=== PATIENT | male | born 1955 | race Caucasian/White ===

== ENCOUNTER 2016-07-11 19:19 | Inpatient (IN) | payer OTHER ==
[~2016-07-11] VITALS: Ht 177.8 cm; Wt 82.7 kg
[2016-07-11] MEDS: SOD CHLORIDE 0.9% 1,000 ML IV SCH (00:45)
--- NOTE | 2016-07-11 19:41 | RADRPT ---
PROCEDURE: CT Brain without contrast. CLINICAL INDICATION: Acute left-sided weakness. Suspected stroke. TECHNIQUE: Axial images from the skull base through the vertex without IV contrast. Multiplanar r eformatted images were made. Images were reviewed on a PACS workstation. The CTDIvol is 44.11 mGy and the DLP is 720.23 mGycm. One or more of the following dose reduction techniques were used: auto mated exposure control, adjustment of the mA and/or kV according to patient size, or use of iterativ e reconstruction technique. COMPARISON: None. FINDINGS: The ventricles and cisterns are normal for age. There is no evidence for territorial infarction or intracranial hemorrhage. No mass or midline shift is seen. No extra-axial fluid collection is seen . minimal cortical atrophy is seen. Subtle white matter low attenuation most likely due to chroni c microvascular ischemic change is seen. There is not a clearly defined territorial infarction or i ntracranial hemorrhage. No mass or midline shift is seen. No extraaxial fluid collection is seen. Partially calcified lesion of the scalp at the vertex is seen. The visualized paranasal sinuses an d mastoids are clear. IMPRESSION: Mild cortical atrophy with mild probable chronic microvascular ischemic change. Hyperacute infarcti on may not be visible by CT and MRI may be helpful if indicated. Results were called to Rnoy Jiménez at 07/11/2016 7:36:38 PM RPTAT: HLBE Physician Herve Date Time Electronically viewed and signed by Abi Sanches Physician on 07/11/2016 19:41 EH
--- NOTE | 2016-07-11 19:42 | ERA ---
ER Documentation Chief Complaint Date/Time DATE: 07/11/16 TIME: 19:36 Chief Complaint sudden onset left hand/side weakness @ 1830 per pt, on ground weak, -loc HPI This is a 60-year-old male who had an onset of left-sided numbness and weakness at 6:30 PM tonight. Current time is 1943. Patient states [place] and was trying to open his gait to his house and noticed that his left arm felt numb. He was able to open the gate and went inside into the garage and his symptoms got worse. He is complaining of left face left arm left leg numbness and weakness. No slurred speech no headache. The patient was found by laying in the garage she called EMS. Patient has no known medical history. He states he has not been to the doctor his entire life. Patient is quite jovial and constantly making jokes. ROS All systems reviewed and are negative except as per history of present illness. Medications Home Meds No Active Prescriptions or Reported Meds Allergies Allergies: Coded Allergies: No Known Drug Allergies (Verified Allergy, Unknown, 07/11/16) FmHx Family History: No coronary disease Physical Exam Vitals Vital Signs Date Time Temp Pulse Resp B/P Pulse Ox O2 Delivery O2 Flow Rate FiO2 07/11/16 21:15 78 18 188/101 100 Nasal Cannula 2.0 07/11/16 21:00 85 20 198/94 100 Nasal Cannula 2.0 07/11/16 20:45 87 20 181/102 100 Room Air 07/11/16 20:30 76 20 179/108 Room Air 07/11/16 20:20 73 18 194/102 100 07/11/16 20:15 80 20 180/116 Room Air 07/11/16 19:20 97.3 103 20 187/113 99 Physical Exam Const: Well-developed, well-nourished Head: Atraumatic, normocephalic Eyes: Normal Conjunctiva, PERRLA, EOMI, normal sclera, no nystagmus ENT: Normal External Ears, Nose and Mouth, moist mucus membranes. Neck: Full range of motion. No meningismus, no lymphadenopathy. Resp: Clear to auscultation bilaterally, no wheezing, rhonchi, rales Cardio: Regular rate and rhythm, no murmurs, S1 S2 present Abd: Soft, non tender x 4, non distended. Normal bowel sounds, no guarding or rebound, no pulsitile abdominal masses or bruits Skin: No petechiae or rashes, no ecchymosis , no maculopapular rash Back: No midline or flank tenderness Ext: No cyanosis, or edema, FROM x 4, normal inspection, neurovascularly intact x 4 Neur: Awake and alert, left facial droop, left upper extremity strength is 3 out of 5, left lower extremity strength is 3-4 out of 5, sensation is loss in the left face arm and leg, sensation intact x 4, no focal findings, cerebellum intact Psych: Normal Mood and Affect Result Diagram: 07/11/16192407/11/161924 Results 24 hrs Laboratory Tests Test 07/11/16 19:25 07/11/16 19:29 07/11/16 21:50 White Blood Count 10.910^3/ul Red Blood Count 5.1710^6/ul Hemoglobin 15.9g/dl Hematocrit 46.3% Mean Corpuscular Volume 89.6fl Mean Corpuscular Hemoglobin 30.8pg Mean Corpuscular Hemoglobin Concent 34.3g/dl Red Cell Distribution Width 12.5% Platelet Count 75544^3/UL Mean Platelet Volume 8.3fl Neutrophils % 79.5% Lymphocytes % 13.0% Monocytes % 6.4% Eosinophils % 0.2% Basophils % 0.5% Nucleated Red Blood Cells % 0.0/100WBC Neutrophils # 8.610^3/ul Lymphocytes # 1.410^3/ul Monocytes # 0.710^3/ul Eosinophils # 0.010^3/ul Basophils # 0.110^3/ul Nucleated Red Blood Cells # 0.010^3/ul Prothrombin Time 12.6Sec Prothrombin Time Ratio 1.0 INR International Normalized Ratio 0.94 Activated Partial Thromboplast Time 30.4Sec Sodium Level 143mmol/L Potassium Level 4.0mmol/L Chloride Level 109mmol/L Carbon Dioxide Level 28mmol/L Anion Gap 10 Blood Urea Nitrogen 8mg/dl Creatinine 0.74mg/dl Glucose Level 111mg/dl Hemoglobin A1c 6.0% Calcium Level 9.6mg/dl Troponin I < 0.012ng/ml Bedside Glucose 103mg/dL Urine Color LT. YELLOW Urine Clarity HAZY Urine pH 8.0 Urine Specific Dennison 1.020 Urine Ketones TRACE Urine Nitrite NEGATIVE Urine Bilirubin NEGATIVE Urine Urobilinogen 0.2 E.U./dL Urine Leukocyte Esterase NEGATIVE Urine Microscopic RBC Pending Urine Microscopic WBC Pending Urine Hemoglobin 1+ Urine Glucose NEGATIVE% Urine Total Protein 1+ Current Medications Medications (Trade) Dose Ordered Sig/Martha Route PRN Reason Start Time Stop Time Status Last Admin Dose Admin Labetalol HCl 10 mg 10 mg ONCE ONCE IV 07/11/16 20:00 07/11/16 20:01 DC 07/11/16 20:00 Sodium Chloride (NS) 1,000 ml @ 1,000 mls/hr Q1H STAT IV 07/11/16 19:49 07/11/16 20:48 DC Alteplase, Recombinant (Activase) 7.6 mg BOLUS OVER 1 MIN ONCE IV* 07/11/16 20:00 07/11/16 20:01 DC 07/11/16 20:15 Alteplase, Recombinant 68 mg 68 mg ISCHEMIC STROKE ONCE IV* 07/11/16 20:00 07/11/16 20:01 DC 07/11/16 20:15 Sodium Chloride (NS) 50 ml @ 0 mls/hr FLUSH AFTER TPA ONCE IV 07/11/16 20:00 07/11/16 20:01 DC IV Flush 10 ml 10 ml STK-MED ONCE .ROUTE 07/11/16 20:19 07/11/16 20:20 DC 07/11/16 20:48 Sodium Chloride (NS) 100 ml @ ud STK-MED ONCE .ROUTE 07/11/16 20:19 07/11/16 20:20 DC 07/11/16 20:48 Iohexol 150 ml 150 ml STK-MED ONCE .ROUTE 07/11/16 20:19 07/11/16 20:20 DC Iohexol (Omnipaque) 100 ml @ ud STK-MED ONCE .ROUTE 07/11/16 20:20 07/11/16 20:21 DC 07/11/16 20:49 Iohexol (Omnipaque 350mg/ ml) 50 ml STK-MED ONCE .ROUTE 07/11/16 20:20 07/11/16 20:21 DC 07/11/16 20:49 Lorazepam (Ativan) 0.5 mg ONCE ONCE IV 07/11/16 21:30 07/11/16 21:31 DC 07/11/16 21:20 Labetalol HCl (Labetalol) 10 mg ONCE ONCE IV 07/11/16 21:30 07/11/16 21:31 DC 07/11/16 21:26 Lorazepam (Ativan) 1 mg ONCE ONCE IV 07/11/16 22:00 07/11/16 22:01 DC Procedures/MDM PROCEDURE: CT Brain without contrast. CLINICAL INDICATION: Acute left-sided weakness. Suspected stroke. TECHNIQUE: Axial images from the skull base through the vertex without IV contrast. Multiplanar reformatted images were made. Images were reviewed on a PACS workstation. The CTDIvol is 44.11 mGy and the DLP is 720.23 mGycm. One or more of the following dose reduction techniques were used: automated exposure control, adjustment of the mA and/or kV according to patient size, or use of iterative reconstruction technique. COMPARISON: None. FINDINGS: The ventricles and cisterns are normal for age. There is no evidence for territorial infarction or intracranial hemorrhage. No mass or midline shift is seen. No extra-axial fluid collection is seen. minimal cortical atrophy is seen. Subtle white matter low attenuation most likely due to chronic microvascular ischemic change is seen. There is not a clearly defined territorial infarction or intracranial hemorrhage. No mass or midline shift is seen. No extraaxial fluid collection is seen. Partially calcified lesion of the scalp at the vertex is seen. The visualized paranasal sinuses and mastoids are clear. IMPRESSION: Mild cortical atrophy with mild probable chronic microvascular ischemic change. Hyperacute infarction may not be visible by CT and MRI may be helpful if indicated. Results were called to Rony Jiménez at 07/11/2016 7:36:38 PM RPTAT: HLBE Physician Herve Date Time Electronically viewed and signed by Abi Sanches Physician on 07/11/2016 19 :41 LE/ CC: RONY SORENSEN DO EKG: Rate/Rhythm: Normal Sinus Rhythm,NL intervals QRS, ST, QT: NORMAL OH, QRS, QT] Impression: NORMAL EKG Spoke with the tele-radiologist at 1951 she is in examining him now in 1954 After her evaluation she advised TPA. PROCEDURE: CT Angiogram Head and Neck with IV Contrast CLINICAL INDICATION: Left-sided weakness. Visual neglect.. TECHNIQUE: Serial axial computed tomographic images of the head and neck were obtained at the administration of 115 cc Omnipaque 350 IV contrast material. 3D , sagittal and coronal reconstruction images were created. 3D/MIP post- processing angiographic reconstruction images were also produced. Exam CTDlvol = 57 mGy and DLP = 736 mGy-cm. One of the following 3 dose reduction techniques were used: Automated exposure control; adjustment of the mA and/or kV according to patient size; or use of iterative reconstruction technique. COMPARISON: CT brain 07/11/2016. FINDINGS: CT Angio Neck: The aortic arch is unremarkable. The common carotid arteries are normal in appearance. There is focal irregular noncalcified filling defect compatible with plaque at the right carotid bulb with a hemodynamically significant approximately 75% diameter stenosis. There is no intimal flap identified. The remainder of the cervical right internal carotid artery is normal in appearance. There is minimal plaque at the left carotid bulb without hemodynamically significant stenosis. The cervical left internal carotid artery is normal in appearance. The vertebral arteries are unremarkable. There are degenerative changes of the cervical spine. CT Angio Head: All major intracranial arteries are identified. There is no significant plaque formation of the cavernous and supraclinoid internal carotid arteries bilaterally. The M1 segment and proximal trifurcation branches of the right middle cerebral artery are slightly irregular and narrowed without a distinct intraluminal filling defect, a intimal flap or occlusion. There is distal runoff with visualization of the right sylvian branches. The remainder of the anterior circulation including the intracranial internal carotid arteries , middle and anterior cerebral arteries are normal in appearance. There is a patent anterior communicating artery. The bilateral distal vertebral arteries, basilar artery and posterior cerebral arteries are normal in appearance. No filling defect is identified. No aneurysm or vascular malformation is identified. No abnormal brain parenchymal enhancement is identified. IMPRESSION: 1. Hemodynamically significant 75% diameter stenosis at the right carotid bulb with irregular noncalcified plaque. No intimal flap to suggest a dissection is identified. 2. Mild diffuse narrowing of the right middle cerebral greatest in the distal M1 segment and proximal trifurcation vessels. Appearance is suggestive of a vasculitis although an eccentric non-occluding thrombus cannot be excluded. 3. Mild noncalcified plaque left carotid bulb without hemodynamically significant stenosis. Findings reported to Dr. Mata on 07/11/2016 9:09 PM. NASCET CAROTID STENOSIS CRITERIA (distal normal appearing ICA as denominator for measurement): 0%-none, 1-49%-mild, 50-70%-moderate, 70-89%-severe, 90-99%- critical. RPTAT: HMVK .Salas Leos MD, MD Date Time Electronically viewed and signed by .Salas Leos MD, on 07/11/2016 21:22 .K/ CC: RONY SORENSEN DO Patient started having some bleeding from his gums and becoming agitated and tossing and turning in the bed. Therefore a stat head CT was ordered with the following results: PROCEDURE: CT Brain without contrast. CLINICAL INDICATION: Code stroke status post t-PA TECHNIQUE: A CT of the brain was performed on a [employer] 64-slice CT scanner utilizing axial imaging from the skull base through the vertex without IV contrast. Multiplanar reformatted images were made. Images were reviewed on a PACS workstation. The CTDIvol is 44.19 mGy and the DLP is 720.23 mGycm. One of the following 3 dose reduction techniques were used: Automated exposure control; adjustment of the mA and/or kV according to patient size; or use of iterative reconstruction technique. COMPARISON: CT brain 07/11/2016 FINDINGS: There is no intracranial hemorrhage, mass effect, or midline shift is present following t-PA administration. No extra-axial fluid collection is seen. The ventricles and sulci are normal in size and configuration. Decreased attenuation is present in the right greater than left insula compatible with evolving acute subsegmental right middle cerebral artery infarct. Subtle decreased attenuation is present in the bilateral centrum semiovale and periventricular white matter compatible with mild chronic microvascular ischemic disease. minimal vascular calcifications are present of the bilateral intracranial internal carotid arteries para The visualized scalp and calvarium are again remarkable for an approximately 1 cm partially calcified left frontal scalp lesion. The bilateral orbits are normal. The bilateral paranasal sinuses, mastoid air cells and middle ear cavities are clear. IMPRESSION: 1. No evidence of acute intracranial hemorrhage status post t-PA. 2. Evolution of right sub segmental non hemorrhagic middle cerebral artery infarct in the right insula. 3. Mild chronic microvascular ischemic disease. 4. Mild atherosclerotic vascular disease A call report was made to Charge Nurse, Teresa Hernandez, as Dr Sorensen was in a procedure at 07/11/2016 10:07:02 PM following the completion of the examination by the undersigned. RPTAT: HDC .Gifty Abarca MD, MD Date Time Electronically viewed and signed by .Gifty Abarca MD, MD on 07/11/2016 22: 08 .C/ CC: RONY SORENSEN DO Patient is unstable for transfer to [facility] whom I did speak with. I did speak with the neurologist on-call about the patient's bleeding from gums and change in mental status and informed her of the new CT head findings. I would will admit to panel. Will not sedate too much so we can assess the patient's neurological status. Patient's neurologic symptoms are concerning for acute TIA/stroke, infectious, or metabolic cause and will require inpatient workup and continuous monitoring. Further w/u for will be deferred to the inpatient team. The patient has been carefully monitored in the ICU for any resultant intracranial hemorrhage from TPA. Departure Diagnosis: Primary Impression: CVA (cerebral vascular accident) Qualified Code: I63.9 - Cerebrovascular accident (CVA), unspecified mechanism Condition: Serious RONY SORENSEN DO Jul 11, 2016 19:42
[2016-07-11 19:43] LABS: ADD SCAN DIFF NO
[2016-07-11 19:45] LABS: BASOPHIL # 0.1 10^3/ul (0.0-0.1); BASOPHILS % 0.5 % (0.0-2.0); EOSINOPHILS % 0.2 % (0.0-7.0); HEMATOCRIT 46.3 % (42.0-52.0); HEMOGLOBIN 15.9 g/dl (14.0-18.0); LYMPHOCYTES # 1.4 10^3/ul (0.8-2.9); MEAN CORPUSCULAR HEMOGLOBIN 30.8 pg (29.0-33.0); MEAN CORPUSCULAR HGB CONC 34.3 g/dl (32.0-37.0); MEAN CORPUSCULAR VOLUME 89.6 fl (82.0-101.0); MEAN PLATELET VOLUME 8.3 fl (7.4-10.4); MONOCYTE # 0.7 10^3/ul (0.3-0.9); MONOCYTES % 6.4 % (0.0-11.0); NEUTROPHIL # 8.6 10^3/ul (1.6-7.5); NEUTROPHILS % 79.5 % (39.0-77.0); PLATELET COUNT 415 10^3/UL (140-415); RED BLOOD COUNT 5.17 10^6/ul (4.70-6.10); RED CELL DISTRIBUTION WIDTH 12.5 % (11.5-14.5); WHITE BLOOD COUNT 10.9 10^3/ul (4.8-10.8)
[2016-07-11] MEDS ORDERED: SOD CHLORIDE 0.9% 1,000 ML IV STA (19:49)
--- NOTE | 2016-07-11 19:56 | RADRPT ---
PROCEDURE: Chest x-ray CLINICAL INDICATION: Stroke TECHNIQUE: Chest single view COMPARISON: None FINDINGS: The heart is normal in size. The pulmonary vessels are normal in caliber. The lungs are clear. Th e costophrenic angles are sharp. The visualized bony thorax is unremarkable. IMPRESSION: No acute cardiopulmonary disease. Low lung volumes RPTAT: HH .Ghassan Weber MD, Date Time Electronically viewed and signed by .Ghassan Weber MD, on 07/11/2016 19:55 .W/
[2016-07-11] MEDS ORDERED: LABETALOL HCL 20MG INJ IV ONE ×2 (20:00→21:30)
[2016-07-11] MEDS ORDERED: ALTEPLASE (tPA) 1 MG/ML BOLUS SYG IV* ONE (20:00)
[2016-07-11] MEDS ORDERED: ALTEPLASE 100 MG INJ IV* ONE (20:00)
[2016-07-11] MEDS ORDERED: SOD CHLORIDE 0.9% 50 ML IV ONE (20:00)
[2016-07-11 20:02] LABS: ANION GAP 10 (8-16); BLOOD UREA NITROGEN 8 mg/dl (7-20); CALCIUM 9.6 mg/dl (8.4-10.2); CARBON DIOXIDE 28 mmol/L (21-31); CHLORIDE 109 mmol/L (97-110); CREATININE 0.74 mg/dl (0.61-1.24); GLUCOSE 111 mg/dl (70-220); SODIUM 143 mmol/L (135-144)
[2016-07-11 20:04] LABS: INR 0.94; PROTIME 12.6 Sec (12.2-14.2)
[2016-07-11 20:05] LABS: PARTIAL THROMBOPLASTIN TIME 30.4 Sec (25.0-35.0)
[2016-07-11 20:16] LABS: TROPONIN-I < 0.012 ng/ml (0.00-0.12)
[2016-07-11] MEDS ORDERED: SOD CHLORIDE 0.9% 100 ML ONE (20:19)
[2016-07-11] MEDS ORDERED: IOHEXOL 300MG/ML 150 ML BTL ONE (20:19)
[2016-07-11] MEDS ORDERED: IOHEXOL 100 ML ONE (20:20)
[2016-07-11] MEDS ORDERED: IOHEXOL 350MG/ML 50 ML BTL ONE (20:20)
--- NOTE | 2016-07-11 20:51 | STROKE ---
Date/Time of Note Date/Time of Note DATE: 07/11/16 TIME: 19:58 Patient Information General Patient location: emergency Arrival Date Age 60 Gender male Weight 84 kg POC Glucose Glucose Result Bedside Glucose - 72 Hours Test 07/11/16 19:29 Bedside Glucose 103mg/dL (70-220) Vital Signs Vital Signs Vital Signs Date Time Temp Pulse Resp B/P Pulse Ox O2 Delivery O2 Flow Rate FiO2 07/11/16 19:20 97.3 103 20 187/113 99 Patient History Current Medications Allergies: Coded Allergies: No Known Drug Allergies (Verified Allergy, Unknown, 07/11/16) Labs Hematology Labs Hematology Test 07/11/16 19:25 White Blood Count 10.910^3/ul (4.8-10.8) Red Blood Count 5.1710^6/ul (4.70-6.10) Hemoglobin 15.9g/dl (14.0-18.0) Hematocrit 46.3% (42.0-52.0) Mean Corpuscular Volume 89.6fl (82.0-101.0) Mean Corpuscular Hemoglobin 30.8pg (29.0-33.0) Mean Corpuscular Hemoglobin Concent 34.3g/dl (32.0-37.0) Red Cell Distribution Width 12.5% (11.5-14.5) Platelet Count 62532^3/UL (140-415) Mean Platelet Volume 8.3fl (7.4-10.4) Neutrophils % 79.5% (39.0-77.0) Lymphocytes % 13.0% (15.0-51.0) Monocytes % 6.4% (0.0-11.0) Eosinophils % 0.2% (0.0-7.0) Basophils % 0.5% (0.0-2.0) Nucleated Red Blood Cells % 0.0/100WBC (0.0-0.0) Neutrophils # 8.610^3/ul (1.6-7.5) Lymphocytes # 1.410^3/ul (0.8-2.9) Monocytes # 0.710^3/ul (0.3-0.9) Eosinophils # 0.010^3/ul (0.0-0.5) Basophils # 0.110^3/ul (0.0-0.1) Nucleated Red Blood Cells # 0.010^3/ul (0.0-0.0) Chemistry Labs Chemistry Test 07/11/16 19:29 Bedside Glucose 103mg/dL (70-220) History & Physical Patient History Notes Pt Hx Reviewed History of Present Illness 60yo M presents with acute onset left sided numbness and weakness. Patient was opening his garage door when he noticed numbness in his left arm, which progressed to left face, arm and leg weakness. Patient's found patient on the floor of the garage. Symptoms began at 6:30pm. Review of Systems Constitutional: no symptoms reported EENTM: no symptoms reported Respiratory: no symptoms reported Cardiovascular: no symptoms reported Gastrointestinal: no symptoms reported Genitourinary: no symptoms reported Musculoskeletal: no symptoms reported Skin: no symptoms reported Psychiatric/Neurological: no symptoms reported All Other Systems: Reviewed and Negative NIH Stroke Scale NIH Stroke Scale 1A - Level of Conciousness: 0 - Alert keenly [id number] LOC Questions: 0 - Answers both [id number] - LOC Commands: 0 - Performs both tasks2 - Best Gaze: 0 - Normal3 - Visual: 0 - No visual loss4 - Facial Palsy: 1 - Partial [id number] - Motor Arm - Left: 2 - Some effort to [id number] - Motor Arm - Right: 0 - No [id number] - Motor Leg - Left: 0 - No [id number] - Motor Leg - Right: 0 - No drift7 - Limb Ataxia: 0 - Absent8 - Sensory: 2 - Severe to total loss 9 - Best Language: 0 - No aphasia or normalDysarthria: 0 - [id number] - Extinction and inattentio: 1 - Sensory stimulationTotal Score: 6 Date/Time Recorded DATE: 07/11/16 TIME: 19:58 Submitted By Yazmin Trejo t-PA Imaging Review Imaging Reviewed: Yes Date/Time Imaging Reviewed DATE: 07/11/16 TIME: 19:58 Imaging Findings No acute changes t-PA Administration Recommendation: Yes Weight 84 kg t-PA Recommendation Date/Time 07/11/16 20:00 Recommedation submitted by Yazmin Trejo Recommendations Impression Diagnosis acute ischemic stroke of the right middle cerebral artery Recommendation I reviewed the risks and benefits of IV TPA in detail with the patient and his and they are agreeable to my recommendation for IV TPA. I recommend stat CTA of the head and neck to determine if the patient is a neurointerventional candidate. I recommend further workup to include MRI Brain without gadolinium and transthoracic echocardiogram. I recommend post-TPA orders be followed. Post t-PA Order recommendation: Document q15 min vitals Document q15 min neuro checks Document q15 min bleeding checks Refer to t-PA Order Sets Diagnostic Labs: Lipid Proile Hgb A1C CMP CBC w/Diff Coags Therapy: Physical Therapy Speech Therapy Occupational Therapy Misc. Recommendations: Bedside Swallow Evaluation Pnumatic Compression Devices Avoid Madrigal Catheter Stroke Education Smoking Education YAZMIN TREJO Jul 11, 2016 20:51
--- NOTE | 2016-07-11 21:22 | RADRPT ---
PROCEDURE: CT Angiogram Head and Neck with IV Contrast CLINICAL INDICATION: Left-sided weakness. Visual neglect.. TECHNIQUE: Serial axial computed tomographic images of the head [facility] Omnipaque 350 IV contrast material. 3D, sagittal and coronal reconstruction im ages were created. 3D/MIP post-processing angiographic reconstruction images were also produced. Ex am CTDlvol = 57 mGy and DLP = 736 mGy-cm. One of the following 3 dose reduction techniques were use d: Automated exposure control; adjustment of the mA and/or kV according to patient size; or use of i terative reconstruction technique. COMPARISON: CT brain 07/11/2016. FINDINGS: CT Angio Neck: The aortic arch is unremarkable. The common carotid arteries are normal in appear ance. There is focal irregular noncalcified filling defect compatible with plaque at the right carot id bulb with a hemodynamically significant approximately 75% diameter stenosis. There is no intimal flap identified. The remainder of the cervical right internal carotid artery is normal in appearanc e. There is minimal plaque at the left carotid bulb without hemodynamically significant stenosis. The cervical left internal carotid artery is normal in appearance. The vertebral arteries are unre markable. There are degenerative changes of the cervical spine. CT Angio Head: All major intracranial arteries are identified. There is no significant plaque forma tion of the cavernous and supraclinoid internal carotid arteries bilaterally. The M1 segment and pr oximal trifurcation branches of the right middle cerebral artery are slightly irregular and narrowed without a distinct intraluminal filling defect, a intimal flap or occlusion. There is distal runof f with visualization of the right sylvian branches. The remainder of the anterior circulation includ ing the intracranial internal carotid arteries, middle and anterior cerebral arteries are normal in appearance. There is a patent anterior communicating artery. The bilateral distal vertebral arteri es, basilar artery and posterior cerebral arteries are normal in appearance. No filling defect is identified. No aneurysm or vascular malformation is identified. No abnormal brain parenchymal e nhancement is identified. IMPRESSION: 1. Hemodynamically significant 75% diameter stenosis at the right carotid bulb with irregular nonca lcified plaque. No intimal flap to suggest a dissection is identified. 2. Mild diffuse narrowing of the right middle cerebral greatest in the distal M1 segment and proxim al trifurcation vessels. Appearance is suggestive of a vasculitis although an eccentric non-occludi ng thrombus cannot be excluded. 3. Mild noncalcified plaque left carotid bulb without hemodynamically significant stenosis. Findings reported to Dr. Mata on 07/11/2016 9:09 PM. NASCET CAROTID STENOSIS CRITERIA (distal normal appearing ICA as denominator for measurement): 0%-no ne, 1-49%-mild, 50-70%-moderate, 70-89%-severe, 90-99%-critical. RPTAT: HMVK .Salas Leos MD, MD Date Time Electronically viewed and signed by .Salas Leos MD, on 07/11/2016 21:22 .K/
--- NOTE | 2016-07-11 21:24 | RADRPT ---
PROCEDURE: CT Angiogram Head and Neck with IV Contrast CLINICAL INDICATION: Left-sided weakness. Visual neglect. TECHNIQUE: Serial axial computed tomographic images of the head and [facility] 115 cc Omnipaque 350 IV contrast material. 3D, sagittal and coronal reconstruction im ages were created. 3D/MIP post-processing angiographic reconstruction images were also produced. Ex am CTDlvol = 57 mGy and DLP = 736 mGy-cm. One of the following 3 dose reduction techniques were use d: Automated exposure control; adjustment of the mA and/or kV according to patient size; or use of i terative reconstruction technique. COMPARISON: CT brain 07/11/2016. FINDINGS: CT Angio Neck: The aortic arch is unremarkable. The common carotid arteries are normal in appear ance. There is focal irregular noncalcified filling defect compatible with plaque at the right carot id bulb with a hemodynamically significant approximately 75% diameter stenosis. There is no intimal flap identified. The remainder of the cervical right internal carotid artery is normal in appearanc e. There is minimal plaque at the left carotid bulb without hemodynamically significant stenosis. The cervical left internal carotid artery is normal in appearance. The vertebral arteries are unre markable. There are degenerative changes of the cervical spine. CT Angio Head: All major intracranial arteries are identified. There is no significant plaque forma tion of the cavernous and supraclinoid internal carotid arteries bilaterally. The M1 segment and pr oximal trifurcation branches of the right middle cerebral artery are slightly irregular and narrowed without a distinct intraluminal filling defect, a intimal flap or occlusion. There is distal runof f with visualization of the right sylvian branches. The remainder of the anterior circulation includ ing the intracranial internal carotid arteries, middle and anterior cerebral arteries are normal in appearance. There is a patent anterior communicating artery. The bilateral distal vertebral arteri es, basilar artery and posterior cerebral arteries are normal in appearance. No filling defect is identified. No aneurysm or vascular malformation is identified. No abnormal brain parenchymal e nhancement is identified. IMPRESSION: 1. Hemodynamically significant 75% diameter stenosis at the right carotid bulb with irregular nonca lcified plaque. No intimal flap to suggest a dissection is identified. 2. Mild diffuse narrowing of the right middle cerebral greatest in the distal M1 segment and proxim al trifurcation vessels. Appearance is suggestive of a vasculitis although an eccentric non-occludi ng thrombus cannot be excluded. 3. Mild noncalcified plaque left carotid bulb without hemodynamically significant stenosis. Findings reported to Dr. Mata and Kira on 07/11/2016 9:09 PM. NASCET CAROTID STENOSIS CRITERIA (distal normal appearing ICA as denominator for measurement): 0%-no ne, 1-49%-mild, 50-70%-moderate, 70-89%-severe, 90-99%-critical. RPTAT: HMVK .Salas Leos MD, MD Date Time Electronically viewed and signed by .Salas Leos MD, on 07/11/2016 21:23 .K/
[2016-07-11] MEDS ORDERED: LORAZEPAM 2 MG INJ IV ONE ×2 (21:30→22:00)
--- NOTE | 2016-07-11 22:09 | RADRPT ---
PROCEDURE: CT Brain without contrast. CLINICAL INDICATION: Code stroke status post t-PA TECHNIQUE: A CT of the brain was performed on a GE [employer] 64-slice CT scanner utilizing axial imaging from the skull base through the vertex without IV contrast. Multiplanar reformatted images were made. Images were reviewed on a PACS workstation. The CTDIvol is 44.19 mGy and the DLP is 720 .23 mGycm. One of the following 3 dose reduction techniques were used: Automated exposure control; adjustment of the mA and/or kV according to patient size; or use of iterative reconstruction technique. COMPARISON: CT brain 07/11/2016 FINDINGS: There is no intracranial hemorrhage, mass effect, or midline shift is present following t-PA adminis tration. No extra-axial fluid collection is seen. The ventricles and sulci are normal in size and c onfiguration. Decreased attenuation is present in the right greater than left insula compatible with evolving acute subsegmental right middle cerebral artery infarct. Subtle decreased attenuation is p resent in the bilateral centrum semiovale and periventricular white matter compatible with mild [place] microvascular ischemic disease. minimal vascular calcifications are present of the bilateral int racranial internal carotid arteries para The visualized scalp and calvarium are again remarkable for an approximately 1 cm partially calcifie d left frontal scalp lesion. The bilateral orbits are normal. The bilateral paranasal sinuses, mast oid air cells and middle ear cavities are clear. IMPRESSION: 1. No evidence of acute intracranial hemorrhage status post t-PA. 2. Evolution of right sub segmental non hemorrhagic middle cerebral artery infarct in the right ins geovanna. 3. Mild chronic microvascular ischemic disease. 4. Mild atherosclerotic vascular disease A call report was made to Charge Nurse, Teresa Hernandez, as Dr Malone was in a procedure at 07/11/2016 10:0 7:02 PM following the completion of the examination by the undersigned. RPTAT: HDC .Gifty Abarca MD, MD Date Time Electronically viewed and signed by .Gifty Abarca MD, on 07/11/2016 22:08 .C/
[2016-07-11 22:17] LABS: ADD UMIC YES; URINE BILIRUBIN (Dip) NEGATIVE (NEGATIVE); URINE BLOOD (Dip) 1+ (NEGATIVE); URINE COLOR LT. YELLOW (YELLOW); URINE GLUCOSE (Dip) NEGATIVE (NEGATIVE); URINE KETONES (Dip) TRACE (NEGATIVE); URINE LEUKOCYTE ESTERASE (Dip) NEGATIVE (NEGATIVE); URINE NITRITE (Dip) NEGATIVE (NEGATIVE); URINE TOTAL PROTEIN (Dip) 1+ (NEGATIVE); URINE UROBILINOGEN (Dip) 0.2 E.U./dL (0.1-1.0)
[2016-07-11 22:41] LABS: BACTERIA,URINE MODERATE
[2016-07-11 22:43] LABS: BARBITURATES Negative (NEGATIVE); BENZODIAZEPINES Negative (NEGATIVE); CANNABINOIDS Negative (NEGATIVE); COCAINE Negative (NEGATIVE); OPIATES Negative (NEGATIVE)
[2016-07-12] VITALS (31 sets, daily range): BP systolic 148–192; BP diastolic 64–106; PULSE 69–105; RESP 13–29; TEMP 98.2; Ht 177.8 cm; Wt 82.7 kg
[2016-07-12] MEDS: LABETALOL HCL 20MG INJ IV PRN ×2 (01:33→02:42)
[2016-07-12 01:35] LABS: ADD SCAN DIFF NO
[2016-07-12 01:42] LABS: BASOPHILS % 0.4 % (0.0-2.0); HEMATOCRIT 47.7 % (42.0-52.0); HEMOGLOBIN 16.1 g/dl (14.0-18.0); LYMPHOCYTES % 9.5 % (15.0-51.0); MEAN CORPUSCULAR HEMOGLOBIN 30.1 pg (29.0-33.0); MEAN CORPUSCULAR HGB CONC 33.8 g/dl (32.0-37.0); MEAN CORPUSCULAR VOLUME 89.3 fl (82.0-101.0); MEAN PLATELET VOLUME 8.4 fl (7.4-10.4); MONOCYTE # 0.6 10^3/ul (0.3-0.9); MONOCYTES % 5.2 % (0.0-11.0); NEUTROPHIL # 9.3 10^3/ul (1.6-7.5); NEUTROPHILS % 84.4 % (39.0-77.0); PLATELET COUNT 445 10^3/UL (140-415); RED BLOOD COUNT 5.34 10^6/ul (4.70-6.10); RED CELL DISTRIBUTION WIDTH 12.3 % (11.5-14.5)
[2016-07-12 01:59] LABS: CALCIUM 9.7 mg/dl (8.4-10.2); CHOL/HDL RATIO 3.9 RATIO; CREATININE 0.68 mg/dl (0.61-1.24); POTASSIUM 4.1 mmol/L (3.5-5.1)
--- NOTE | 2016-07-12 05:19 | HP ---
Date/Time of Note Date/Time of Note DATE: 07/12/16 TIME: 05:01 Assessment/Plan VTE Prophylaxis VTE Prophylaxis Intervention: SCD's Lines/Catheters [facility]from [facility] Peripheral IV Urinary Cath still in place: Yes Reason Cath still needed: other (indicate) Assessment/Plan Chief Complaint/Hosp Course This is a 60-year-old male being admitted to the ICU floor for: #1 acute CVA: Patient presented within a timeframe of the TPA window. He was given TPA. He did experience some gingival bleeding which upon my examination had stopped. Will transfer the patient to the ICU and initiate post stroke TPA protocol. Will avoid using any further sedating medications at this time as they could affect his neurochecks. If there are any signs of deterioration or changing will order a stat CT of the head. Will order CT of the head within 24 hours a TPA. Will also order an MRI as recommended by telemetry neuro. Will also order additional labs ESR JOSHUA and Anca labs as recommended by telemetry neuro for possible vasculitis. Patient also was positive for amphetamines in his urine drug screen will repeat a urine drug screen in the a.m. it is possible that the phentermine could have contributed to this episode. Bilateral Doppler ultrasound of the carotids. Will check lipid panel and A1c. Consult neurology. CT a did show narrowing of the middle cerebral artery will evaluate this further on MRI. Next CTA showed: Hemodynamically significant 75% diameter stenosis at the right carotid bulb with irregular noncalcified plaque, will consult vascular surgery. Will also order an echocardiogram. #2 leukocytosis: Slightly elevated at 11. This likely could be reactive in nature. No current fevers. We will continue to follow this. #3 DVT and GI prophylaxis: Patient received TPA at the current time chemical prophylaxis would be further contraindicated. Will provide SCDs, Protonix Further treatment strategy will be implemented as per the clinical course. Problems: HPI/ROS Admit Date/Time Admit Date/Time Jul 12, 2016 at 00:03 Hx of Present Illness Chief complaint: Left-sided numbness and weakness This is a 60-year-old male who had an onset of left-sided numbness and weakness at 6:30 PM tonight. The following was obtained from the ED physician documentation. This patient presented at 1944 p.m. Patient [place] open his gait to his house and noticed that his left arm felt numb. He was able to open the gate and went inside into the garage and his symptoms got worse. He is complaining of left face left arm left leg numbness and weakness. No slurred speech no headache. The patient was found by laying in the garage she called EMS. Patient has no known medical history. He states he has not been to the doctor his entire life. Patient is quite jovial and constantly making jokes. Total neurology was consulted and CT of the head was performed. Patient was deemed a candidate to receive TPA.. She has NIH score was 6 after receiving TPA patient did begin to show aggressive behavior while he was sleeping. He was given Ativan in the ED. Patient's was at the bedside and I discussed his history with her. Patient is known to be a very stubborn man who did not want to go to the doctor for any visits ever. Patient does have a history of drug use according to the however she is not sure of which kind of drugs. PMH/Family/Social Past Medical History Medical History: no pertinent history Past Surgical History Past Surgical Hx: no surgical history Family History Significant Family History: cancer (Cervical cancer in mom) Social History Alcohol Use: occasionally Smoking Status: Never smoker Drug Use: other (Possible cocaine use according to in the past) Exam/Review of Systems Vital Signs Vitals Vital Signs Date Time Temp Pulse Resp B/P Pulse Ox O2 Delivery O2 Flow Rate FiO2 07/12/16 03:00 71 22 162/99 100 Nasal Cannula 2.0 07/12/16 01:00 99.2 07/11/16 21:00 28 Intake and Output 07/11/16 07/11/16 07/12/16 15:00 23:00 07:00 Output Total 1100 ml Balance -1100 ml Exam Exam General: Patient is currently post TPA and sleeping in the bed. He did receive Ativan. HEENT: Atraumatic, normocephalic. Pupils are reactive to light bilaterally. Neck: Supple with full range of motion. No rigidity or meningismus Chest: Nontender Lungs: Clear to auscultation bilaterally no crackles rales or wheezing Heart: Normal S1-S2, Regular rhythm and rate. Abdomen: Soft , nontender, nondistended , bowel sounds are present. No guarding no rebound tenderness , No masses or organomegaly. No costovertebral temporal angle mass Extremities: Patient is able to move the right upper and lower extremity to command. He is able to move his left lower extremity with a strength of about 3 -4 out of 5. His left upper extremity has a strength of about 3-2 out of 5. Neurologic: Patient does respond to sternal rub. He does answer questions appropriately. Additional Comments PROCEDURE: CT Brain without contrast. CLINICAL INDICATION: Acute left-sided weakness. Suspected stroke. TECHNIQUE: Axial images from the skull base through the vertex without IV contrast. Multiplanar reformatted images were made. Images were reviewed on a PACS workstation. The CTDIvol is 44.11 mGy and the DLP is 720.23 mGycm. One or more of the following dose reduction techniques were used: automated exposure control, adjustment of the mA and/or kV according to patient size, or use of iterative reconstruction technique. COMPARISON: None. FINDINGS: The ventricles and cisterns are normal for age. There is no evidence for territorial infarction or intracranial hemorrhage. No mass or midline shift is seen. No extra-axial fluid collection is seen. minimal cortical atrophy is seen. Subtle white matter low attenuation most likely due to chronic microvascular ischemic change is seen. There is not a clearly defined territorial infarction or intracranial hemorrhage. No mass or midline shift is seen. No extraaxial fluid collection is seen. Partially calcified lesion of the scalp at the vertex is seen. The visualized paranasal sinuses and mastoids are clear. IMPRESSION: Mild cortical atrophy with mild probable chronic microvascular ischemic change. Hyperacute infarction may not be visible by CT and MRI may be helpful if indicated. Results were called to Rony Jiménez at 07/11/2016 7:36:38 PM RPTAT: HLBE Physician Hreve Date Time Electronically viewed and signed by Physician Herve on 07/11/2016 19 :41 LE/ CC: RONY SORENSEN DO EKG: Rate/Rhythm: Normal Sinus Rhythm,NL intervals QRS, ST, QT: NORMAL ID, QRS, QT] Impression: NORMAL EKG Spoke with the tele-radiologist at 195 she is in examining him now in 1957 After her evaluation she advised TPA. PROCEDURE: CT Angiogram Head and Neck with IV Contrast CLINICAL INDICATION: Left-sided weakness. Visual neglect.. TECHNIQUE: Serial axial computed tomographic images of the head and neck were obtained at the administration of 115 cc Omnipaque 350 IV contrast material. 3D , sagittal and coronal reconstruction images were created. 3D/MIP post- processing angiographic reconstruction images were also produced. Exam CTDlvol = 57 mGy and DLP = 736 mGy-cm. One of the following 3 dose reduction techniques were used: Automated exposure control; adjustment of the mA and/or kV according to patient size; or use of iterative reconstruction technique. COMPARISON: CT brain 07/11/2016. FINDINGS: CT Angio Neck: The aortic arch is unremarkable. The common carotid arteries are normal in appearance. There is focal irregular noncalcified filling defect compatible with plaque at the right carotid bulb with a hemodynamically significant approximately 75% diameter stenosis. There is no intimal flap identified. The remainder of the cervical right internal carotid artery is normal in appearance. There is minimal plaque at the left carotid bulb without hemodynamically significant stenosis. The cervical left internal carotid artery is normal in appearance. The vertebral arteries are unremarkable. There are degenerative changes of the cervical spine. CT Angio Head: All major intracranial arteries are identified. There is no significant plaque formation of the cavernous and supraclinoid internal carotid arteries bilaterally. The M1 segment and proximal trifurcation branches of the right middle cerebral artery are slightly irregular and narrowed without a distinct intraluminal filling defect, a intimal flap or occlusion. There is distal runoff with visualization of the right sylvian branches. The remainder of the anterior circulation including the intracranial internal carotid arteries , middle and anterior cerebral arteries are normal in appearance. There is a patent anterior communicating artery. The bilateral distal vertebral arteries, basilar artery and posterior cerebral arteries are normal in appearance. No filling defect is identified. No aneurysm or vascular malformation is identified. No abnormal brain parenchymal enhancement is identified. IMPRESSION: 1. Hemodynamically significant 75% diameter stenosis at the right carotid bulb with irregular noncalcified plaque. No intimal flap to suggest a dissection is identified. 2. Mild diffuse narrowing of the right middle cerebral greatest in the distal M1 segment and proximal trifurcation vessels. Appearance is suggestive of a vasculitis although an eccentric non-occluding thrombus cannot be excluded. 3. Mild noncalcified plaque left carotid bulb without hemodynamically significant stenosis. Findings reported to Dr. Mata on 07/11/2016 9:09 PM. NASCET CAROTID STENOSIS CRITERIA (distal normal appearing ICA as denominator for measurement): 0%-none, 1-49%-mild, 50-70%-moderate, 70-89%-severe, 90-99%- critical. RPTAT: HMVK .Salas Leos MD, Date Time Electronically viewed and signed by .Salas Leos MD, on 07/11/2016 21:22 .K/ CC: RONY SORENSEN DO Patient started having some bleeding from his gums and becoming agitated and tossing and turning in the bed. Therefore a stat head CT was ordered with the following results: PROCEDURE: CT Brain without contrast. CLINICAL INDICATION: Code stroke status post t-PA TECHNIQUE: A CT of the brain was performed on a [employer] 64-slice CT scanner utilizing axial imaging from the skull base through the vertex without IV contrast. Multiplanar reformatted images were made. Images were reviewed on a PACS workstation. The CTDIvol is 44.19 mGy and the DLP is 720.23 mGycm. One of the following 3 dose reduction techniques were used: Automated exposure control; adjustment of the mA and/or kV according to patient size; or use of iterative reconstruction technique. COMPARISON: CT brain 07/11/2016 FINDINGS: There is no intracranial hemorrhage, mass effect, or midline shift is present following t-PA administration. No extra-axial fluid collection is seen. The ventricles and sulci are normal in size and configuration. Decreased attenuation is present in the right greater than left insula compatible with evolving acute subsegmental right middle cerebral artery infarct. Subtle decreased attenuation is present in the bilateral centrum semiovale and periventricular white matter compatible with mild chronic microvascular ischemic disease. minimal vascular calcifications are present of the bilateral intracranial internal carotid arteries para The visualized scalp and calvarium are again remarkable for an approximately 1 cm partially calcified left frontal scalp lesion. The bilateral orbits are normal. The bilateral paranasal sinuses, mastoid air cells and middle ear cavities are clear. IMPRESSION: 1. No evidence of acute intracranial hemorrhage status post t-PA. 2. Evolution of right sub segmental non hemorrhagic middle cerebral artery infarct in the right insula. 3. Mild chronic microvascular ischemic disease. 4. Mild atherosclerotic vascular disease A call report was made to Charge Nurse, Teresa Hernandez, as Dr Sorensen was in a procedure at 07/11/2016 10:07:02 PM following the completion of the examination by the undersigned. RPTAT: HDC .Gifty Abarca MD, MD Date Time Electronically viewed and signed by .Gifty Abarca MD, MD on 07/11/2016 22: 08 Labs Result Diagram: 07/11/16192407/11/161924 Medications Medications Current Medications Sodium Chloride (NS) 1,000 ml @ 50 mls/hr Q20H IV ; Start 07/11/16 at 23:57 Acetaminophen (Tylenol Supp) 650 mg Q4H PRN ID PAIN LEVEL 1-3 OR FEVER; Start 07/12/16 at 00:00 Pantoprazole (Protonix Iv) 40 mg DAILY@06 IV ; Start 07/12/16 at 06:00 Labetalol HCl (Labetalol) 10 mg Q10M PRN IV ELEVATED BLOOD PRESSURE Last administered on 07/12/16t 02:42; Admin Dose 10 MG; Start 07/12/16 at 00:00 BALDO PATEL Jul 12, 2016 05:13
[2016-07-12] MEDS: PANTOPRAZOLE 40 MG INJ IV SCH (06:00)
[2016-07-12 06:41] LABS: ADD SCAN DIFF NO
[2016-07-12 06:56] LABS: BASOPHILS % 0.2 % (0.0-2.0); HEMATOCRIT 47.6 % (42.0-52.0); HEMOGLOBIN 16.1 g/dl (14.0-18.0); LYMPHOCYTES # 1.1 10^3/ul (0.8-2.9); LYMPHOCYTES % 9.2 % (15.0-51.0); MEAN CORPUSCULAR HEMOGLOBIN 30.2 pg (29.0-33.0); MEAN CORPUSCULAR HGB CONC 33.8 g/dl (32.0-37.0); MEAN CORPUSCULAR VOLUME 89.3 fl (82.0-101.0); MEAN PLATELET VOLUME 8.4 fl (7.4-10.4); MONOCYTE # 0.6 10^3/ul (0.3-0.9); NEUTROPHIL # 10.3 10^3/ul (1.6-7.5); PLATELET COUNT 458 10^3/UL (140-415); RED BLOOD COUNT 5.33 10^6/ul (4.70-6.10); RED CELL DISTRIBUTION WIDTH 12.3 % (11.5-14.5); WHITE BLOOD COUNT 12.1 10^3/ul (4.8-10.8)
[2016-07-12 07:19] LABS: ALBUMIN/GLOBULIN RATIO 1.42; CALCIUM 9.7 mg/dl (8.4-10.2); CREATININE 0.68 mg/dl (0.61-1.24); MAGNESIUM 2.2 mg/dl (1.7-2.5); POTASSIUM 4.1 mmol/L (3.5-5.1); TOTAL PROTEIN 8.5 g/dl (6.1-8.1)
[2016-07-12] MEDS: SOD CHLORIDE 0.9% 1,000 ML IV SCH (08:00)
[2016-07-12] MEDS ORDERED: METOPROLOL 25 MG TAB PO SCH (09:00)
--- NOTE | 2016-07-12 10:04 | PN ---
Date/Time of Note Date/Time of Note DATE: 07/12/16 TIME: 09:56 Assessment/Plan VTE Prophylaxis VTE Prophylaxis Intervention: LMWH Lines/Catheters [facility] (from [facility] Peripheral IV Urinary Cath still in place: Yes Reason Cath still needed: other (indicate) Assessment/Plan Chief Complaint/Hosp Course Assessment and plan 1. CVA versus TIA Neurology has been consulted, patient is status post TPA. Continue post TPA protocol Continue to monitor blood pressure Start aspirin, statin and Norvasc 2. Essential hypertension Started patient on Norvasc, at this time beta-lazaro is contraindicated since patient is positive for amphetamine on UDS 3. Dyslipidemia Start statin 4. 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 Prediabetic Low-carb diet, education regarding low-carb diet should be provided We will continue monitor patient closely for recommendation management treatment as clinical course Problems: Subjective 24 Hr Interval Summary Free Text/Dictation Patient has been agitated Able to follow simple commands Denies any chest pain or shortness of breath Exam/Review of Systems Vital Signs Vitals Vital Signs Date Time Temp Pulse Resp B/P Pulse Ox O2 Delivery O2 Flow Rate FiO2 07/12/16 08:00 86 07/12/16 08:00 Nasal Cannula 2.0 07/12/16 07:00 23 158/90 100 07/12/16 04:00 97.7 07/11/16 21:00 28 Intake and Output 07/11/16 07/11/16 07/12/16 15:00 23:00 07:00 Output Total 1100 ml Balance -1100 ml Exam General: The patient is well-developed, mildly agitated HEENT: Atraumatic, normocephalic. The pupils are equal and round . Neck: Supple with full range of motion. Chest: Normal expansion of the thorax during inspiration Lungs: Clear to auscultation bilaterally Heart: Normal S1-S2, Regular rhythm and rate. Abdomen: Soft , nontender, nondistended , bowel sounds are present. Extremities: Normal to inspection, no edema no cyanosis Neurologic:,The patient is awake, alert Results Result Diagram: 07/12/16 0615 07/12/16 0615 Results 24 hrs Laboratory Tests Test 07/11/16 19:25 6/1/17 19:29 07/11/16 21:50 07/12/16 01:17 White Blood Count 10.9 H Red Blood Count 5.17 Hemoglobin 15.9 Hematocrit 46.3 Mean Corpuscular Volume 89.6 Mean Corpuscular Hemoglobin 30.8 Mean Corpuscular Hemoglobin Concent 34.3 Red Cell Distribution Width 12.5 Platelet Count 415 Mean Platelet Volume 8.3 Neutrophils % 79.5 H Lymphocytes % 13.0 L Monocytes % 6.4 Eosinophils % 0.2 Basophils % 0.5 Nucleated Red Blood Cells % 0.0 Neutrophils # 8.6 H Lymphocytes # 1.4 Monocytes # 0.7 Eosinophils # 0.0 Basophils # 0.1 Nucleated Red Blood Cells # 0.0 Prothrombin Time 12.6 Prothrombin Time Ratio 1.0 INR International Normalized Ratio 0.94 Activated Partial Thromboplast Time 30.4 Sodium Level 143 Potassium Level 4.0 Chloride Level 109 Carbon Dioxide Level 28 Anion Gap 10 # Blood Urea Nitrogen 8 Creatinine 0.74 Glucose Level 111 Hemoglobin A1c 6.0 H Calcium Level 9.6 Troponin I < 0.012 Bedside Glucose 103 Urine Color LT. YELLOW Urine Clarity HAZY Urine pH 8.0 Urine Specific [place] 1.020 Urine Ketones TRACE Urine Nitrite NEGATIVE Urine Bilirubin NEGATIVE Urine Urobilinogen 0.2 E.U./dL Urine Leukocyte Esterase NEGATIVE Urine Microscopic RBC 2-5 Urine Microscopic WBC 0-2 Urine Bacteria MODERATE Urine Hemoglobin 1+ H Urine Glucose NEGATIVE Urine Total Protein 1+ H Urine Opiates Screen Negative Urine Barbiturates Negative Urine Amphetamines Screen Positive Urine Benzodiazepines Screen Negative Urine Cocaine Screen Negative Urine Cannabinoids Negative Erythrocyte Sedimentation Rate 6 C-Reactive Protein 1.3 H Test 07/12/16 06:15 White Blood Count 12.1 H Red Blood Count 5.33 Hemoglobin 16.1 Hematocrit 47.6 Mean Corpuscular Volume 89.3 Mean Corpuscular Hemoglobin 30.2 Mean Corpuscular Hemoglobin Concent 33.8 Red Cell Distribution Width 12.3 Platelet Count 458 H Mean Platelet Volume 8.4 Neutrophils % 85.0 H Lymphocytes % 9.2 L Monocytes % 5.0 Eosinophils % 0.0 Basophils % 0.2 Nucleated Red Blood Cells % 0.0 Neutrophils # 10.3 H Lymphocytes # 1.1 Monocytes # 0.6 Eosinophils # 0.0 Basophils # 0.0 Nucleated Red Blood Cells # 0.0 Sodium Level 140 Potassium Level 4.1 Chloride Level 101 Carbon Dioxide Level 26 Anion Gap 17 #H Blood Urea Nitrogen 9 Creatinine 0.68 Glucose Level 129 Calcium Level 9.7 Magnesium Level 2.2 Total Bilirubin 1.0 Direct Bilirubin 0.00 Indirect Bilirubin 1.0 Aspartate Amino Transf (AST/SGOT) 38 Alanine Aminotransferase (ALT/SGPT) 39 Alkaline Phosphatase 131 H Total Protein 8.5 H Albumin 5.0 H Globulin 3.50 H Albumin/Globulin Ratio 1.42 Medications Medications Current Medications Sodium Chloride (NS) 1,000 ml @ 50 mls/hr Q20H IV ; Start 07/11/16 at 23:57 Acetaminophen (Tylenol Supp) 650 mg Q4H PRN [place] PAIN LEVEL 1-3 OR FEVER; Start 07/12/16 at 00:00 Pantoprazole (Protonix Iv) 40 mg DAILY@06 IV ; Start 07/12/16 at 06:00 Labetalol HCl (Labetalol) 10 mg Q10M PRN IV ELEVATED BLOOD PRESSURE Last administered on 07/12/16t 02:42; Admin Dose 10 MG; Start 07/12/16 at 00:00 Atorvastatin Calcium (Lipitor) 40 mg HS PO ; Start 07/12/16 at 21:00 Metoprolol Tartrate (Lopressor) 12.5 mg BID PO ; Start 07/12/16 at 09:00 MELVINA RICH MD Jul 12, 2016 10:04
[2016-07-12] MEDS: AMLODIPINE 5 MG TAB PO SCH ×2 (10:30→21:00)
--- NOTE | 2016-07-12 11:29 | RADRPT ---
PROCEDURE: US Carotids. CLINICAL INDICATION: bruit , CVA, TIA TECHNIQUE: Multiple sonographic of the carotid bifurcation region and vertebral arteries were obta ined utilizing trujillo scale, duplex and color-flow imaging. The images were reviewed on a PACS worksta tion. COMPARISON: 07/11/16 FINDINGS: Evaluation of the right carotid bifurcation region reveals no significant calcific atherosclerotic d isease. There is moderate intimal thickening in the right common carotid artery. There is a 57% stenosis in the right common carotid artery. Evaluation of the left carotid bifurcation region reveals no significant calcific atherosclerotic di sease. There is antegrade flow within the vertebral arteries bilaterally. RIGHT CAROTID MEASUREMENTS: Common Carotid Ciewkt96.3 (cm/sec) Internal Carotid Artery - imnctygd353.3 (cm/sec) Internal Carotid Artery - afx596.8 (cm/sec) Internal Carotid Artery - hgploi512.8 (cm/sec) Internal Carotid/Common Carotid2.12 LEFT CAROTID MEASUREMENTS: Common Carotid Laekdq60 (cm/sec) Internal Carotid Artery - nbeyvmyb21.8 (cm/sec) Internal Carotid Artery - mid53.8 (cm/sec) Internal Carotid Artery - .4 (cm/sec) Internal Carotid/Common Carotid0.97 RPTAT: AA IMPRESSION: Moderate intimal thickening in the right common carotid artery with a 57% stenosis. 50-69% stenosis in the right ICA. - validated velocity measurements with angiographic measurements, velocity criteria are extrapolated from diameter data as defined by the Society of Radiologists [facility] Consensus Conference Radiology 2003; 229;340-346. This study does indirectly reference th e measurement of the distal ICA diameter as the denominator for stenosis measurement. Normal antegrade flow in the vertebral arteries bilaterally. .Manny Diez MD, MD Date Time Electronically viewed and signed by .Manny Diez MD, MD on 07/12/2016 11:28 .S/
--- NOTE | 2016-07-12 12:14 | RADRPT ---
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 Physician: BALDO PATEL Quality: Good Procedures: Transthoracic echocardiogram with complete 2D, M-Mode, and doppler examination. Indications: Cerebrovascular Accident. 2D/M Mode Doppler Measurement Value Normal Ranges Measurement Value Normal Ranges LVIDd 2D 3.7 3.5 - 5.6 cm AV Peak Benigno 1.6 m/sec LVIDs 2D 1.9 2.1 - 4.1 cm AV Peak PG 10.0 mmHg FS 2D 49.2 % AI Peak PG 85.0 mmHg LVPWd 2D 1.0 0.6 - 1.1 cm AI Peak Benigno 4.6 m/sec IVSd 2D 1.0 0.6 - 1.1 cm AI PHT 555.0 msec IVS/LVPW 2D 1.0 LVOT Peak Benigno 1.2 m/sec AoR Diam 2D 2.9 2.0 - 3.7 cm LVOT Peak PG 6.0 mmHg LA/Ao 2D 1 0 - 1 MV E Peak Benigno 0.6 m/sec EDV 2D 50.7 cm3 MV A Peak Benigno 0.9 m/sec ESV 2D 6.6 cm3 MV E/A 0.7 LA Dimen 2D 3.4 2.3 - 4.0 cm MV Decel Time 225 msec MV E/A 0.7 Findings Left Ventricle: Normal left ventricular systolic function. Normal left ventricular cavity size. Normal left ventricular wall thickness. Ejection fraction is visually estimated at 60 %. Tissue Doppler/Mitral Doppler indices are within normal limits. Right Ventricle: Normal right ventricular size. Normal right ventricular systolic function. Left Atrium: The left atrium is normal in size. Right Atrium: The right atrium is normal in size. Mitral Valve: Normal appearance and function of the mitral valve with trace physiologic regurgitation. Aortic Valve: Normal appearance of the aortic valve. No hemodynamically significant aortic stenosis by doppler. Aortic cusps appear mildly calcified. Mild aortic valve regurgitation. Tricuspid Valve: Normal appearance of the tricuspid valve. Unable to obtain RVSP due to minimal presence of tricuspid regurgitation. Pulmonic Valve: Pulmonic valve not well visualized. Pericardium: Normal pericardium with no significant pericardial effusion. Aorta: Normal aortic root. IVC: Normal size and normal respiratory collapse consistent with normal right atrial pressure. Conclusions 1.Normal left ventricular systolic function. Normal left ventricular cavity size. Normal left ventricular wall thickness. Ejection fraction is visually estimated at 60 %. Tissue Doppler/Mitral Doppler indices are within normal limits. 2.Mild aortic valve regurgitation. 3.Unable to obtain RVSP due to minimal presence of tricuspid regurgitation. RA pressure estimated to be 3 mmHg. Electronically Signed By: Brayden Peterson 12-Jul-2016 12:13:47 -0700 Patient Name: MAURIZIO POLLARD Study Date: 12-Jul-2016 [id number]
--- NOTE | 2016-07-12 14:29 | CONS ---
Date/Time of Note Date/Time of Note DATE: 07/12/16 TIME: 14:15 Assessment/Plan Assessment/Plan Chief Complaint/Hosp Course Sudden onset of left-sided weakness and slurring of speech Problems: Additional Assessment/Plan Patient is a 60-year-old male admitted with sudden onset of of left-sided numbness and weakness. Patient was seen by telemetry neurology was consulted and CT of the head was performed. Patient was deemed a candidate to receive TPA.. He is currently in ICU. Initial CT scan of the brain did not show any acute stroke. Repeat CT scan of the brain showed evolution of right sub segmental non hemorrhagic middle cerebral artery infarct in the right insula and mild chronic microvascular ischemic disease. CT angiogram of the head and neck showed 75% narrowing of the right carotid bulb. Examination shows left hemiparesis. He apparently had right MCA ischemic stroke secondary to carotid artery stenosis. Plan: 1 no blood thinners for 24 hours after TPA [address] scan of the brain to rule out hemorrhage at 24 hours after TPA [address] scan of the brain is negative for blood, will start on aspirin 81 mg p.o. daily 4 echocardiogram 5 continue neuro check per ICU protocol 6 OT/PT/speech evaluation and treatment 7 discussed with patient and were present in the room 8 will follow Consultation Date/Type/Reason Admit Date/Time Jul 12, 2016 at 00:03 Date of Consultation: Jul 12, 2016 Type of Consultation: Neurology Referring Provider: BALDO PATEL Hx of Present Illness Patient is a 60-year-old male was brought in by paramedics for sudden onset of of left-sided numbness and weakness. Patient's found him on the floor and was noted to have left-sided weakness and slurring of speech. Patient has no known medical history and has never seen a physician. Patient was seen by telemetry neurology was consulted and CT of the head was performed. Patient was deemed a candidate to receive TPA.. He haD NIH score was 6 after receiving TPA patient did begin to show aggressive behavior while he was sleeping. He was given Ativan in the ED. Patient does have a history of drug use according to the however she is not sure of which kind of drugs. He is currently in ICU. Initial CT scan of the brain did not show any acute stroke. Repeat CT scan of the brain showed evolution of right sub segmental non hemorrhagic middle cerebral artery infarct in the right insula and mild chronic microvascular ischemic disease. CT angiogram of the head and neck showed 75% narrowing of the right carotid bulb. Eyes: no complaints ENT: no complaints Respiratory: no complaints Cardiovascular: no complaints Gastrointestinal: no complaints Genitourinary: no complaints Skin: no complaints Neurologic: focal-weakness Endocrine: no complaints Lymphatic: no complaints Immunologic: no complaints Past Medical History Medical History: no pertinent history Past Surgical History Past Surgical Hx: no surgical history Social History Alcohol Use: occasionally Smoking Status: Never smoker Drug Use: other (Possible cocaine use according to in the past) Exam/Review of Systems Vital Signs Vitals Vital Signs Date Time Temp Pulse Resp B/P Pulse Ox O2 Delivery O2 Flow Rate FiO2 07/12/16 12:00 70 07/12/16 12:00 22 167/92 100 Nasal Cannula 2.0 07/12/16 08:00 98.6 07/11/16 21:00 28 Intake and Output 07/11/16 07/11/16 07/12/16 15:00 23:00 07:00 Output Total 1100 ml Balance -1100 ml Exam Constitutional: other (He is keeping his eyes closed and follows simple commands) Head: atraumatic, normocephalic Eyes: EOMI, nl conjunctiva, nl lids, nl sclera ENMT: mucosa pink and moist, nl external ears & nose, nl lips & teeth, nl nasal mucosa & septum Neck: non-tender, supple Respiratory: clear to auscultation, normal air movement Cardiovascular: regular rate and rhythm Gastrointestinal: nl liver, spleen, non-tender, soft Extremities: normal pulses Neurological: other (Drowsy, follows simple commands, limited exam, left hemiparesis, unable to squeeze my fingers on the left and was unable to raise her arm and leg against gravity, left Babinski) Results Result Diagram: 07/12/16 0615 07/12/16 0615 Results 24 hrs Laboratory Tests Test 07/11/16 19:25 07/11/16 19:29 07/11/16 21:50 07/12/16 01:17 White Blood Count 10.9 H Red Blood Count 5.17 Hemoglobin 15.9 Hematocrit 46.3 Mean Corpuscular Volume 89.6 Mean Corpuscular Hemoglobin 30.8 Mean Corpuscular Hemoglobin Concent 34.3 Red Cell Distribution Width 12.5 Platelet Count 415 Mean Platelet Volume 8.3 Neutrophils % 79.5 H Lymphocytes % 13.0 L Monocytes % 6.4 Eosinophils % 0.2 Basophils % 0.5 Nucleated Red Blood Cells % 0.0 Neutrophils # 8.6 H Lymphocytes # 1.4 Monocytes # 0.7 Eosinophils # 0.0 Basophils # 0.1 Nucleated Red Blood Cells # 0.0 Prothrombin Time 12.6 Prothrombin Time Ratio 1.0 INR International Normalized Ratio 0.94 Activated Partial Thromboplast Time 30.4 Sodium Level 143 Potassium Level 4.0 Chloride Level 109 Carbon Dioxide Level 28 Anion Gap 10 # Blood Urea Nitrogen 8 Creatinine 0.74 Glucose Level 111 Hemoglobin A1c 6.0 H Calcium Level 9.6 Troponin I < 0.012 Bedside Glucose 103 Urine Color LT. YELLOW Urine Clarity HAZY Urine pH 8.0 Urine Specific [place] 1.020 Urine Ketones TRACE Urine Nitrite NEGATIVE Urine Bilirubin NEGATIVE Urine Urobilinogen 0.2 E.U./dL Urine Leukocyte Esterase NEGATIVE Urine Microscopic RBC 2-5 Urine Microscopic WBC 0-2 Urine Bacteria MODERATE Urine Hemoglobin 1+ H Urine Glucose NEGATIVE Urine Total Protein 1+ H Urine Opiates Screen Negative Urine Barbiturates Negative Urine Amphetamines Screen Positive Urine Benzodiazepines Screen Negative Urine Cocaine Screen Negative Urine Cannabinoids Negative Erythrocyte Sedimentation Rate 6 C-Reactive Protein 1.3 H Test 07/12/16 06:15 White Blood Count 12.1 H Red Blood Count 5.33 Hemoglobin 16.1 Hematocrit 47.6 Mean Corpuscular Volume 89.3 Mean Corpuscular Hemoglobin 30.2 Mean Corpuscular Hemoglobin Concent 33.8 Red Cell Distribution Width 12.3 Platelet Count 458 H Mean Platelet Volume 8.4 Neutrophils % 85.0 H Lymphocytes % 9.2 L Monocytes % 5.0 Eosinophils % 0.0 Basophils % 0.2 Nucleated Red Blood Cells % 0.0 Neutrophils # 10.3 H Lymphocytes # 1.1 Monocytes # 0.6 Eosinophils # 0.0 Basophils # 0.0 Nucleated Red Blood Cells # 0.0 Sodium Level 140 Potassium Level 4.1 Chloride Level 101 Carbon Dioxide Level 26 Anion Gap 17 #H Blood Urea Nitrogen 9 Creatinine 0.68 Glucose Level 129 Calcium Level 9.7 Magnesium Level 2.2 Total Bilirubin 1.0 Direct Bilirubin 0.00 Indirect Bilirubin 1.0 Aspartate Amino Transf (AST/SGOT) 38 Alanine Aminotransferase (ALT/SGPT) 39 Alkaline Phosphatase 131 H Total Protein 8.5 H Albumin 5.0 H Globulin 3.50 H Albumin/Globulin Ratio 1.42 Medications Medications Current Medications Sodium Chloride (NS) 1,000 ml @ 50 mls/hr Q20H IV Last administered on 08:00; Admin Dose 50 MLS/HR; Start 07/11/16 at 23:57 Acetaminophen (Tylenol Supp) 650 mg Q4H PRN AK PAIN LEVEL 1-3 OR FEVER; Start 07/12/16 at 00:00 Pantoprazole (Protonix Iv) 40 mg DAILY@06 IV ; Start 07/12/16 at 06:00 Labetalol HCl (Labetalol) 10 mg Q10M PRN IV ELEVATED BLOOD PRESSURE Last administered on 07/12/16 02:42; Admin Dose 10 MG; Start 07/12/16 at 00:00 Atorvastatin Calcium (Lipitor) 40 mg HS PO ; Start 07/12/16 at 21:00 Amlodipine Besylate (Norvasc) 5 mg BID PO ; Start 07/12/16 at 10:[address] brain 07/11/2016 IMPRESSION: Mild cortical atrophy with mild probable chronic microvascular ischemic change. Hyperacute infarction may not be visible by CT and MRI may be helpful if indicated. Results were called to Rony Jiménez at 07/11/2016 7:36:38 PM RPTAT: HLBE Physician Herve Date Time Electronically viewed and signed by Abi Sanches Physician on 07/11/2016 19 :[address] brain 07/11/2016 IMPRESSION: 1. No evidence of acute intracranial hemorrhage status post t-PA. 2. Evolution of right sub segmental non hemorrhagic middle cerebral artery infarct in the right insula. 3. Mild chronic microvascular ischemic disease. 4. Mild atherosclerotic vascular disease A call report was made to Charge Nurse, Teresa Hernandez, as Dr Malone was in a procedure at 07/11/2016 10:07:02 PM following the completion of the examination by the undersigned. RPTAT: HDC .Gifty Abarca MD, Date Time Electronically viewed and signed by .Gifty Abarca MD, MD on 07/11/2016 22: 08 CT angiogram of the brain 07/11/2016 IMPRESSION: 1. Hemodynamically significant 75% diameter stenosis at the right carotid bulb with irregular noncalcified plaque. No intimal flap to suggest a dissection is identified. 2. Mild diffuse narrowing of the right middle cerebral greatest in the distal M1 segment and proximal trifurcation vessels. Appearance is suggestive of a vasculitis although an eccentric non-occluding thrombus cannot be excluded. 3. Mild noncalcified plaque left carotid bulb without hemodynamically significant stenosis. Findings reported to Dr. Mata on 07/11/2016 9:09 PM. NASCET CAROTID STENOSIS CRITERIA (distal normal appearing ICA as denominator for measurement): 0%-none, 1-49%-mild, 50-70%-moderate, 70-89%-severe, 90-99%- critical. RPTAT: HMVK .Salas Leos MD, Date Time Electronically viewed and signed by .Salas Leos MD, MD on 07/11/2016 21:22 CT angiogram of the neck 07/11/2016 IMPRESSION: 1. Hemodynamically significant 75% diameter stenosis at the right carotid bulb with irregular noncalcified plaque. No intimal flap to suggest a dissection is identified. 2. Mild diffuse narrowing of the right middle cerebral greatest in the distal M1 segment and proximal trifurcation vessels. Appearance is suggestive of a vasculitis although an eccentric non-occluding thrombus cannot be excluded. 3. Mild noncalcified plaque left carotid bulb without hemodynamically significant stenosis. Findings reported to Dr. Mata and Kira on 07/11/2016 9:09 PM. NASCET CAROTID STENOSIS CRITERIA (distal normal appearing ICA as denominator for measurement): 0%-none, 1-49%-mild, 50-70%-moderate, 70-89%-severe, 90-99%- critical. RPTAT: HMVK .Salas Leos MD, Date Time Electronically viewed and signed by .Salas Leos MD, on 07/11/2016 21:23 Carotid ultrasound 07/12/2016 IMPRESSION: Moderate intimal thickening in the right common carotid artery with a 57% stenosis. 50-69% stenosis in the right ICA. - validated velocity measurements with angiographic measurements, velocity criteria are extrapolated from diameter data as defined by the Society of Radiologists in Ultrasound Consensus Conference Radiology 2003; 229;340-346. This study does indirectly reference the measurement of the distal ICA diameter as the denominator for stenosis measurement. Normal antegrade flow in the vertebral arteries bilaterally. .Manny Diez MD, Date Time Electronically viewed and signed by .Manny Diez MD, on 07/12/2016 11: 28 ARASELI HERBERT MD Jul 12, 2016 14:26
--- NOTE | 2016-07-12 15:39 | CONS ---
DATE OF ADMISSION: 07/12/2016 DATE OF CONSULTATION: 07/12/2016 REASON FOR CONSULTATION: Evaluation for carotid stenosis. HISTORY OF PRESENT ILLNESS: This is a 60-year-old male who was admitted with a stroke. Carotid ult rasound showed 50% to 69% stenosis in the right internal carotid artery. This was confirmed with mo re than 75% stenosis of the right internal carotid artery, per CT angiogram. The patient is now jessica ng recovered for right MCA ischemic stroke. PAST MEDICAL HISTORY: Hypertension, hyperlipidemia. PAST SURGICAL HISTORY: None. ALLERGIES: NONE. SOCIAL HISTORY: No smoking, drinking, or drug use. MEDICATIONS: List reviewed. PHYSICAL EXAMINATION: GENERAL: The patient is sedated. VITAL SIGNS: Blood pressure is 167/92, pulse is 69, respirations 18. CARDIOVASCULAR: Normal S1, S2. No murmurs, gallops, or rubs. LUNGS: Clear. ABDOMEN: Soft. EXTREMITIES: Warm. LABORATORY VALUES: Significant for hemoglobin of 16.1, white count of 12.1, platelet count 486. No rmal coagulation factors and a creatinine of 0.68. IMPRESSION: 1. Right carotid stenosis 75%. 2. Right middle cerebral artery stroke. RECOMMENDATIONS: This patient will need right carotid endarterectomy; however, he should recover fr om the stroke prior to undergoing surgery. He will also need cardiology clearance prior to surgery. Discussed with the family. We will discuss with the referring physicians. Dictated By: STEFANIA ZAZUETA/NTS Conf#: [id number] DID#: [id number]
--- NOTE | 2016-07-12 17:52 | RADRPT ---
PROCEDURE: MRI Brain without contrast. CLINICAL INDICATION: Stroke symptoms. TECHNIQUE: An MRI of the brain was performed without contrast utilizing the following sequences: Sagittal T1 weighted, sagittal FLAIR, axial T1, axial FLAIR, axial T2 weighted, axial diffusion weig hted (EPI technique t=[id number]), axial ADC mapping. The images were reviewed on a high-resolution PACS workstation. COMPARISON: 07/11/2016 CT head FINDINGS: Diffusion weighted sequences demonstrate acute/recent infarct involving the right posterior temporal /parietal lobe as well as the posterior aspect of the right temporal lobe. There is associated mild gyral swelling involving the region of infarct. There are subtle areas of low signal GRE (coronal series image 21, 39 respectively, concerning for early hemorrhagic transformation. There is no extr a-axial fluid collection, mass lesion, midline shift or hydrocephalous. There is mild prominence of the cerebral sulci, lateral and third ventricles. There is a persistent cavum septum pellucidum, n ormal variant. There are moderate patchy and confluent periventricular and subcortical C2 / FLAIR s ignal hyperintensity, likely related chronic microangiopathic changes. Normal flow voids are visibl e the proximal intracranial arteries and dural sinuses, indicating patency. The midline structures are intact. There are mild to moderate inflammatory changes of the right maxillary sinus and mild inflammatory c hanges of the bilateral ethmoid air cells. The mastoid air cells and middle ear cavities are normal ly aerated. The orbits, calvarium and extracranial soft tissues are normal in appearance. IMPRESSION: 1. Acute/recent right MCA distribution infarct, with infarct involving the right posterior frontal / parietal lobe as well as the superior right temporal lobe. There are subtle areas of low signal o n the GRE images, concerning for early hemorrhagic transformation. 2. Baseline of mild peripheral and central cerebral volume loss. 3. Baseline of moderate patchy and confluent periventricular and subcortical white matter lesions. The above findings were discussed with Patient's Nurse Evelia by telephone on 07/12/2016 5:49:46 PM. RPTAT: DD .Rishabh Hogue MD, Date Time Electronically viewed and signed by .Rishabh Hogue MD, on 07/12/2016 17:52 .S/
[2016-07-12] MEDS: ATORVASTATIN 40 MG TAB PO SCH (21:00)
--- NOTE | 2016-07-12 22:50 | RADRPT ---
AMENDMENT: 07/13/2016 10:40:26 AM David Iraheta M.D Impression #2 should read: No large area of hemorrhage, however, area of increased attenuation along the cortical gyri recent question of petechial cortical hemorrhage. [facility] Radiology Report Patient Name: LATRICE STEVEN Report Date: 12-Jul-2016 22:50.00 Accession No.: [id number] Patient Date: 1955 Report Status: S Referring Physician: RAMYA BLAND Reason For Study: cva s/p stroke [place] [id number] Radiology Main Line: [phone] DIAGNOSTIC IMAGING REPORT Patient: MAURIZIO POLLARD : 1955 Age: 60 Sex: M MR #: [id number] DOS: 07/12/161999 Ordering MD: BALDO PATEL MD Location: ICU Room/Bed: [facility] PROCEDURE: CT Brain without contrast. CLINICAL INDICATION: CVA. TECHNIQUE: A multiplanar CT of the brain was performed on a CT scanner utilizing axial imaging from the skull base through the vertex without IV contrast. The CTDIvol is 85.29 mGy and the DLP is 1058.27 mGycm. One or more of the following dose reduction techniques were utilized: Automated exposure control, adjustment of the mA and/or kV according to patient size, use of iterative reconstruction technique. COMPARISON: 07/12/2016 MR brain. FINDINGS: No evidence of intracranial hemorrhage or abnormal extra-axial fluid collection. Wedge-shaped low attenuation in the right parietal and posterior frontal lobe compatible with acute / early subacute MCA territory ischemic infarct. No evidence of active transformation. Minimal linear hyper attenuation along the right parietal cortex which may represent minimal luxury perfusion petechial hemorrhage versus closely opposed cortical. This correlates with the the MRI findings of ischemic infarction in this region. Diffuse in edema with loss of trujillo-white differentiation corresponding area of ischemic in Mild attenuation of the periventricular white matter compatible with chronic microvascular ischemic disease. the ventricles and subarachnoid spaces are mildly prominent compatible with the age appropriate volume loss. The basal cisterns, posterior fossa contents, brainstem, craniocervical junction, orbits, pituitary axis, paranasal sinuses, mastoid air cells, and calvarium are unremarkable. IMPRESSION: 1. Wedge-shaped area of hypo attenuation in the right posterior frontal parietal lobes compatible with right MCA territory ischemic infarction and vasogenic edema as detailed above. 2. New large area of hemorrhage, however, of increased attenuation along the cortical gyri recent question of petechial cortical hemorrhage. 3. Mild age related volume loss. RPTAT:AAJJ Jennifer Salguero Physician Date Time Electronically viewed and signed by Physician Dominique on 07/12/2016 22:50 BATSHEVA/ CC: BALDO PATEL .David Iraheta MD, MD Date Time Electronically viewed and signed by .David Iraheta MD, on 07/13/2016 10:40 .Thais/
[2016-07-13] VITALS (28 sets, daily range): BP systolic 127–165; BP diastolic 70–96; PULSE 68–99; RESP 14–26
[2016-07-13 05:08] LABS: ADD SCAN DIFF NO
[2016-07-13 05:12] LABS: BASOPHILS % 0.2 % (0.0-2.0); HEMATOCRIT 47.6 % (42.0-52.0); HEMOGLOBIN 15.8 g/dl (14.0-18.0); LYMPHOCYTES # 1.6 10^3/ul (0.8-2.9); LYMPHOCYTES % 12.6 % (15.0-51.0); MEAN CORPUSCULAR HEMOGLOBIN 29.8 pg (29.0-33.0); MEAN CORPUSCULAR HGB CONC 33.2 g/dl (32.0-37.0); MEAN CORPUSCULAR VOLUME 89.6 fl (82.0-101.0); MEAN PLATELET VOLUME 8.5 fl (7.4-10.4); MONOCYTES % 8.1 % (0.0-11.0); NEUTROPHIL # 10.1 10^3/ul (1.6-7.5); NEUTROPHILS % 78.7 % (39.0-77.0); PLATELET COUNT 435 10^3/UL (140-415); RED BLOOD COUNT 5.31 10^6/ul (4.70-6.10); RED CELL DISTRIBUTION WIDTH 12.6 % (11.5-14.5); WHITE BLOOD COUNT 12.8 10^3/ul (4.8-10.8)
[2016-07-13] MEDS: ACETAMINOPHEN 650 MG SUPP PR PRN ×2 (05:24→20:16)
[2016-07-13] MEDS: PANTOPRAZOLE 40 MG INJ IV SCH (05:24)
[2016-07-13 05:38] LABS: CALCIUM 9.6 mg/dl (8.4-10.2); CREATININE 0.72 mg/dl (0.61-1.24); MAGNESIUM 2.4 mg/dl (1.7-2.5)
[2016-07-13] MEDS: SOD CHLORIDE 0.9% 1,000 ML IV SCH ×3 (08:10→15:24)
[2016-07-13] MEDS: AMLODIPINE 5 MG TAB PO SCH ×3 (08:11→20:16)
--- NOTE | 2016-07-13 09:45 | PN ---
DATE: 07/13/2016 TIME OF EVALUATION: 9 a.m. SUBJECTIVE DATA: The patient remains somnolent. Vital signs stable. Awaiting speech therapy evaluation. OBJECTIVE DATA: VITAL SIGNS: Temperature 100.8, pulse rate 80, respiratory rate 19, blood pressure 162/80, oxygen saturation 98% on room air. GENERAL: This is an adequately built 60-year-old male patient lying in bed, in no apparent distress. HEENT: Head normocephalic and atraumatic. Eyes: Anicteric sclerae. Conjunctivae clear. ENT: Nasal septum is midline. Oral mucosa is dry. NECK: Supple. No JVD noticed. RESPIRATORY: Bilaterally clear to auscultation. No adventitious breath sounds. No use of accessory muscles of respiration. CARDIAC: Regular rate and rhythm. S1 and S2 heard. ABDOMEN: Soft, nontender, nondistended. Bowel sounds positive in all 4 quadrants. GENITOURINARY: Deferred. EXTREMITIES: No cyanosis, no clubbing, no edema. Peripheral pulses palpable. NEUROLOGIC: The patient is somnolent. The patient wakes up to call and follows commands. Left hemiparesis. Left upper and lower extremity with minimal movement against gravity. Follows simple commands. LABORATORY AND DIAGNOSTIC DATA: WBC 12.8, hemoglobin 15.8, hematocrit 47.6, platelets of 435. Sodium 141, potassium 4.0, chloride 102, carbon dioxide 27, anion gap 16, BUN 13, creatinine 0.72, glucose 107, calcium 9.6, magnesium 2.4. ASSESSMENT AND PLAN: 1. 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 The patient is status post TPA. Continue neuro checks. Continue statins. Aspirin to be started once cleared by neurology. 2. Essential hypertension. Continue antihypertensives. 3. Dyslipidemia. Continue statins. 4. Febrile episodes. Etiology unclear. Pancultures have been ordered. The patient has minimal leukocytosis. Remains off antibiotics. Await final cultures. 5. Right carotid artery stenosis with 75% stenosis. The patient was evaluated by vascular surgery. As per vascular surgery, the patient needs a carotid endarterectomy. Cardiac clearance required for surgery. Will call cardiology for cardiac clearance. 6. History of drug abuse, with current positive amphetamines in the urine. Cessation will be advised. 7. Fluid, electrolytes and nutrition. N.p.o. until speech therapy evaluation. 8. DVT prophylaxis. Bilateral sequential compression devices. 9. Gastrointestinal prophylaxis. Proton pump inhibitors. PLAN: Continue frequent neuro checks. Await speech therapy evaluation. Continue physical therapy. Case discussed with Dr. Cheung. Plan of care was explained to the patient's family who was at the bedside. Critical care time: 45 minutes. MARY CHEUNG MD, AM/WILBERT Conf#: [id number] DID#: [id number] MTDD
--- NOTE | 2016-07-13 11:46 | CONS ---
Date/Time of Note Date/Time of Note DATE: 07/13/16 TIME: 11:37 Assessment/Plan Assessment/Plan Chief Complaint/Hosp Course Sudden onset of left-sided weakness and slurring of speech Problems: Additional Assessment/Plan Patient is a 60-year-old male admitted with sudden onset of of left-sided numbness and weakness. Patient was seen by telemetry neurology was consulted and CT of the head was performed. Patient was deemed a candidate to receive TPA.. He is currently in ICU. Initial CT scan of the brain did not show any acute stroke. Repeat CT scan of the brain showed evolution of right sub segmental non hemorrhagic middle cerebral artery infarct in the right insula and mild chronic microvascular ischemic disease. CT angiogram of the head and neck showed 75% narrowing of the right carotid bulb. Examination shows left hemiparesis. He apparently had right MCA ischemic stroke likely secondary to carotid artery stenosis. MRI of the brain showed acute/recent right MCA distribution infarct, with infarct involving the right posterior frontal / parietal lobe as well as the superior right temporal lobe, subtle areas of low signal on the GRE images, concerning for early hemorrhagic transformation. Plan: 1 Start Aspirin 300 mg per rectal daily 2 follow echocardiogram 3 continue neuro check per ICU protocol 4 OT/PT/speech evaluation and treatment 5 discussed with patient and were present in the room 6 okay to transfer to [facility] when bed available Consultation Date/Type/Reason Admit Date/Time Jul 12, 2016 at 00:03 Initial Consult Date 07/12/16 Type of Consultation: Neurology Referring Provider: BALDO PATEL 24 HR Interval Summary Free Text/Dictation Clinically unchanged. MRI of the brain showed acute/recent right MCA distribution infarct, with infarct involving the right posterior frontal / parietal lobe as well as the superior right temporal lobe, subtle areas of low signal on the GRE images, concerning for early hemorrhagic transformation. Exam/Review of Systems Vital Signs Vitals Vital Signs Date Time Temp Pulse Resp B/P Pulse Ox O2 Delivery O2 Flow Rate FiO2 07/13/16 11:00 98.0 74 21 154/84 100 Room Air 07/12/16 16:00 2.0 07/11/16 21:00 28 Intake and Output 07/12/16 07/12/16 07/13/16 15:00 23:00 07:00 Intake Total 350 ml 250 ml 350 ml Output Total 260 ml 325 ml 535 ml Balance 90 ml -75 ml -185 ml Exam Constitutional: non-verbal, other (Does not follow command) Head: atraumatic, normocephalic Eyes: EOMI, nl conjunctiva, nl lids, nl sclera ENMT: mucosa pink and moist, nl external ears & nose, nl lips & teeth, nl nasal mucosa & septum Neck: non-tender, supple Respiratory: clear to auscultation, normal air movement Cardiovascular: nl pulses, regular rate and rhythm Gastrointestinal: soft Extremities: normal pulses Neurological: other (Does not communicate and did not follow commands, avoiding left visual field with right gaze preference, limited exam) Results Result Diagram: 07/13/1642407/13/16424 Results 24 hrs Laboratory Tests Test 07/13/16 04:25 White Blood Count 12.8 H Red Blood Count 5.31 Hemoglobin 15.8 Hematocrit 47.6 Mean Corpuscular Volume 89.6 Mean Corpuscular Hemoglobin 29.8 Mean Corpuscular Hemoglobin Concent 33.2 Red Cell Distribution Width 12.6 Platelet Count 435 H Mean Platelet Volume 8.5 Neutrophils % 78.7 H Lymphocytes % 12.6 L Monocytes % 8.1 Eosinophils % 0.0 Basophils % 0.2 Nucleated Red Blood Cells % 0.0 Neutrophils # 10.1 H Lymphocytes # 1.6 Monocytes # 1.0 H Eosinophils # 0.0 Basophils # 0.0 Nucleated Red Blood Cells # 0.0 Sodium Level 141 Potassium Level 4.0 Chloride Level 102 Carbon Dioxide Level 27 Anion Gap 16 Blood Urea Nitrogen 13 Creatinine 0.72 Glucose Level 107 Calcium Level 9.6 Magnesium Level 2.4 Medications Medications Current Medications Sodium Chloride (NS) 1,000 ml @ 50 mls/hr Q20H IV Last administered on 08:20; Admin Dose 50 MLS/HR; Start 07/11/16 at 23:57 Acetaminophen (Tylenol Supp) 650 mg Q4H PRN MO PAIN LEVEL 1-3 OR FEVER Last administered on 07/13/16 05:24; Admin Dose 650 MG; Start 07/12/16 at 00:00 Pantoprazole (Protonix Iv) 40 mg DAILY@06 IV Last administered on 07/13/16 05: 24; Admin Dose 40 MG; Start 07/12/16 at 06:00 Labetalol HCl (Labetalol) 10 mg Q10M PRN IV ELEVATED BLOOD PRESSURE Last administered on 07/12/16 02:42; Admin Dose 10 MG; Start 07/12/16 at 00:00 Atorvastatin Calcium (Lipitor) 40 mg HS PO ; Start 07/12/16 at 21:00 Amlodipine Besylate (Norvasc) 5 mg BID PO Last administered on 07/13/16 09:25; Admin Dose 5 MG; Start 07/12/16 at 10:30 ARASELI HERBERT MD Jul 13, 2016 11:46
--- NOTE | 2016-07-13 13:12 | DS ---
DATE OF ADMISSION: 07/12/2016 DATE OF DISCHARGE: 07/13/2016 (Transfer to [facility]). FINAL DIAGNOSES: 1. Acute right middle cerebral artery distribution infarct with infarct involving the right posterior frontal/parietal as well as superior right temporal lobe. Status post tissue plasminogen activator. 2. Essential hypertension. 3. Dyslipidemia. 4. Right carotid artery stenosis with 75% stenosis. 5. Substance abuse. 6. Systemic inflammatory response syndrome with leukocytosis, febrile illness and tachycardia. 7. Pre-diabetes. CONSULTATIONS: 1. Dr. Marixa Figueroa, Neurology. 2. Dr. Wallace Braun, Vascular Surgery. HOSPITAL COURSE: This is a 60-year-old male with past medical history of essential hypertension, who had a sudden onset of left-sided numbness and weakness on 07/11/2016, around 6:30 p.m. at night. The patient verbalized that [place] and was [place] to open his gate to his house and noticed that his left arm felt numb. He was able to open the gate and went inside into the garage and his symptoms got worse. He was complaining of left face, left arm and left leg numbness and weakness. There was no reported slurred speech or headache. The patient was found by his lying in the garage and she called EMS. The patient does not take any medications at home. The patient has not been to a doctor for his entire life. Tele-neurology was consulted and a CT scan of the head was performed. The patient was deemed to be a candidate to receive tPA. The patient was given tPA in the emergency room. The patient has a history of drug abuse and as per the patient's , he has not been using any drugs in the recent past. The patient was transferred to the intensive care unit following tPA. The patient was not started on any anticoagulation because of recent tPA use. Frequent neuro checks were obtained. A neurology consult was obtained. The patient underwent a neck CTA that showed hemodynamically significant 75% diameter stenosis at the right carotid bulb with irregular noncalcified plaque. The CTA also showed a mildly diffuse narrowing of the right middle cerebral artery, greatest in the distal M1 segment and proximal trifurcation vessels, suggestive of vasculitis, although eccentric non-occluding thrombus cannot be excluded. Because of the findings of carotid stenosis, a vascular surgery consult was called. Vascular surgery evaluated the patient, and vascular surgery recommended endarterectomy when the patient is more stable. The patient was noticed to have dyslipidemia. The patient was started on statins. The patient was also noticed to have uncontrolled blood pressure. Hence, the patient was started on antihypertensives. No aspirin was started since the patient had a tPA. Neurology evaluated the patient and neurology recommended current management. A 2-D echocardiogram was ordered that showed preserved left ventricle with left ventricular ejection fraction with Mild aortic valve regurgitation. The patient remained confused status post tPA. The patient was given some Ativan in the emergency room for his confusion. However, Ativan was avoided later because of the need for frequent neuro checks. The patient continued to have left hemiparesis. The patient was also noticed to have significant dysphagia. The patient was evaluated by speech therapy and the patient was started on a mechanical soft diet. As mentioned earlier, the patient has history of drug abuse. The patient's urine drug screen was positive for amphetamines. The patient's brain CT scan that was done on 07/12/2016 had an impression stating that the patient has a new large area of hemorrhage. However , this was confirmed with the radiologist and the radiologist corrected the report as no large area of hemorrhage. The patient underwent a brain MRI that showed acute right MCA distribution infarct with infarct involving the right posterior frontal/parietal lobe as well as the superior bitemporal lobe. The patient was also noticed to be prediabetic with a hemoglobin A1c of 6.0. The patient was being monitored in the intensive care unit. The patient is a [facility] patient, and hence the patient is to be transferred to [facility] for further management and care. The patient was noted to have a febrile illness after tPA infusion. However, the patient had minimal leukocytosis. The patient was treated with Tylenol. Phillip cultures were ordered. The phillip cultures are pending at this time. The patient's chest x-ray was negative for any infiltrates. It was suspected that the patient's temperatures were neurogenic in origin. Hence, the patient was not started on any antibiotics until the final cultures were available. DISPOSITION AND PLAN: The patient will be transferred to [facility] for further treatment and management. The patient will continue to take the same medications. The patient needs ACLS transport. The patient needs to be transferred to ICU stepdown for close monitoring. The patient should be maintained on frequent neuro checks. The starting of aspirin will be deferred to the neurologist. The patient will be continued on antihypertensives and statins. CONDITION AT DISCHARGE: Stable. DISCHARGE MEDICATIONS: 1. Atorvastatin 40 mg p.o. at bedtime. 2. Amlodipine 5 mg p.o. b.i.d. 3. Protonix 40 mg IV daily. 4. Labetalol 10 mg IV q. 10 minutes p.r.n., as blood pressure greater than 160. PERTINENT LABORATORY AND DIAGNOSTIC DATA: 1. 2D echocardiogram. Normal left ventricular systolic function. Normal left ventricular cavity size. Ejection fraction is estimated at 60%. Mild aortic valve regurgitation. 2. Brain MRI. Acute/recent right middle cerebral artery distribution infarct with infarct on the right posterior frontal/parietal lobe as well as the superior right temporal lobe. There are subtle areas of low signal on the GRE images concerning for early hemorrhagic transformation. 3. Latest brain CT scan, no large area of hemorrhage; however concerning questionable petechial cortical hemorrhage. 4. Urine drug toxicology. Positive for amphetamines. 5. Fasting lipid panel: Triglycerides 106, total cholesterol 235, LDL 157, HDL 59. 6. Hemoglobin A1c of 6.0. 7. Latest CBC: WBC 12.83, hemoglobin 15.8, hematocrit 47.6, platelet count 435. 8. Latest BMP: Sodium 143, potassium 4.0, chloride 109, carbon dioxide 28, anion gap 10, BUN 8, creatinine 0.74, glucose 111, calcium 9.6. 9. Chest x-ray. No acute cardiopulmonary disease. Low lung volumes. 10. Neck CTA. Hemodynamically significant 75% diameter stenosis at the right carotid bulb with irregular noncalcified plaque. No intimal flap that suggested dissection is identified. Mild diffuse narrowing of the right middle cerebral artery, greatest at the distal M1 segment and proximal trifurcation vessels. Appearance suggestive of a vasculitis, although an eccentric known occluding thrombus cannot be excluded. Mild known calcified plaque in the left carotid bulb without hemodynamically significant stenosis. 11. Carotid Doppler study. Moderate intimal thickening in the right common carotid artery with a 57% stenosis. At this time, I would like to thank all the consultants for seeing the patient and providing clinical recommendations. The case and management of this patient was fully discussed with Dr. Cheung. Approximately 40 minutes was spent on this transfer process. MARY CHEUNG MD, AM/WILBERT Conf#: [id number] DID#: [id number] MTDD
[2016-07-13 13:37] LABS: MYELOPEROXIDASE ANTIBODY <1.0 AI; PROTEINASE-3 ANTIBODY <1.0 AI
--- NOTE | 2016-07-13 14:14 | RADRPT ---
PROCEDURE: CT Brain without contrast. CLINICAL INDICATION: Altered mental status. Nonresponsive. Possible seizure. CVA status post t-P A. TECHNIQUE: A CT of the brain was performed on a multidetector CT scanner utilizing axial sections from the skull base through the vertex without contrast. Images were reviewed on a high-resolution [id number] workstation. Exam CTDI = 44.68 mGy and the DLP = 720.23 mGy-cm. One or more of the following dose reduction techniques were used: Automated exposure control Adjustment of the mA and/or kV according to patient size. Use of iterative reconstruction technique. COMPARISON: CT head 07/12/2016 FINDINGS: There is an evolving right MCA territorial infarct involving the right posterior frontal and parieta l lobes extending into the parietal operculum. There is no evidence of hemorrhagic conversion. The re is minimal mass effect upon the right lateral ventricle. There is no evidence of intracranial he morrhage, mass effect or midline shift. No abnormal intra-axial or extra-axial fluid collections ar e seen. The density of the brain is normal and the trujillo/white matter differentiation is well preser chiki. Mild patchy diffuse deep white matter microangiopathic ischemic change is seen. The osseous structures are unremarkable. Paranasal sinuses are clear. Vascular calcifications are identified. IMPRESSION: 1. Evolving right MCA territorial infarct without evidence of hemorrhagic conversion. Minimal effac ement of the right lateral ventricle without midline shift. 2. Mild chronic microvascular ischemic changes. 3. Mild intracranial atherosclerosis. RPTAT: EE .Kiki Cade MD, MD Date Time Electronically viewed and signed by .Kiki Cade MD, on 07/13/2016 14:14 .O/
[2016-07-13 14:18] LABS: ANA SCREEN NEGATIVE (NEGATIVE)
--- NOTE | 2016-07-13 15:15 | PN ---
Date/Time of Note Date/Time of Note DATE: 07/13/16 TIME: 15:15 Assessment/Plan Lines/Catheters IV Catheter Type (from [facility] Peripheral IV Madrigal in Place (from [facility]): Yes Assessment/Plan Chief Complaint/Hosp Course IMPRESSION: 1. Right carotid stenosis 75%. 2. Right middle cerebral artery stroke. RECOMMENDATIONS: This patient will need right carotid endarterectomy; however, he should recover from the stroke prior to undergoing surgery. He will also need cardiology clearance prior to surgery. Discussed with the family. We will discuss with the referring physicians. Problems: Subjective 24 Hr Interval Summary Constitutional: improved Pain Control: mild Exam/Review of Systems Vital Signs Vitals Vital Signs Date Time Temp Pulse Resp B/P Pulse Ox O2 Delivery O2 Flow Rate FiO2 07/13/16 14:00 98.6 145/87 96 Room Air 07/13/16 13:24 99 21 07/12/16 16:00 2.0 07/11/16 21:00 28 Intake and Output 07/12/16 07/12/16 07/13/16 15:00 23:00 07:00 Intake Total 350 ml 250 ml 350 ml Output Total 260 ml 325 ml 535 ml Balance 90 ml -75 ml -185 ml Exam ENMT: mucosa pink and moist, nl external ears & nose, nl lips & teeth, nl nasal mucosa & septum Neck: non-tender, supple Respiratory: clear to auscultation, normal air movement Cardiovascular: nl pulses, regular rate and rhythm Results Result Diagram: 07/13/16 0425 07/13/16 0425 STEFANIA LORD MD Jul 13, 2016 15:15
[2016-07-13] MEDS: ATORVASTATIN 40 MG TAB PO SCH (20:16)
--- NOTE | 2016-07-13 20:55 | RADRPT ---
PROCEDURE: XR Chest. CLINICAL INDICATION: Dyspnea TECHNIQUE: Anterior chest x-ray. COMPARISON: 07/11/2016 FINDINGS: The lungs are clear. No pleural effusion identified. There is no evidence of pneumothorax. The cardiomediastinal silhouette is unremarkable. The soft tissues are normal. Osseous structures are unremarkable. IMPRESSION: 1. No acute disease is seen in the chest. RPTAT: HLDM .David Iraheta MD, MD Date Time Electronically viewed and signed by .David Iraheta MD, on 07/13/2016 20:54 .M/
[2016-07-14] VITALS (27 sets, daily range): BP systolic 98–156; BP diastolic 49–93; PULSE 63–90; RESP 15–25
[2016-07-14 04:28] LABS: ADD SCAN DIFF NO
[2016-07-14 04:36] LABS: BASOPHILS % 0.4 % (0.0-2.0); EOSINOPHILS % 0.3 % (0.0-7.0); HEMATOCRIT 45.4 % (42.0-52.0); HEMOGLOBIN 15.4 g/dl (14.0-18.0); LYMPHOCYTES # 2.2 10^3/ul (0.8-2.9); LYMPHOCYTES % 23.2 % (15.0-51.0); MEAN CORPUSCULAR HEMOGLOBIN 30.2 pg (29.0-33.0); MEAN CORPUSCULAR HGB CONC 33.9 g/dl (32.0-37.0); MEAN PLATELET VOLUME 8.4 fl (7.4-10.4); MONOCYTE # 1.1 10^3/ul (0.3-0.9); MONOCYTES % 11.8 % (0.0-11.0); NEUTROPHILS % 63.8 % (39.0-77.0); PLATELET COUNT 412 10^3/UL (140-415); WHITE BLOOD COUNT 9.5 10^3/ul (4.8-10.8)
[2016-07-14 04:53] LABS: CALCIUM 9.2 mg/dl (8.4-10.2); CREATININE 0.68 mg/dl (0.61-1.24); POTASSIUM 3.8 mmol/L (3.5-5.1)
[2016-07-14 04:55] LABS: MAGNESIUM 2.3 mg/dl (1.7-2.5); PHOSPHORUS 3.4 mg/dl (2.5-4.9)
[2016-07-14] MEDS: PANTOPRAZOLE 40 MG INJ IV SCH (06:08)
[2016-07-14] MEDS: SOD CHLORIDE 0.9% 1,000 ML IV SCH (06:08)
--- NOTE | 2016-07-14 06:56 | PN ---
Date/Time of Note Date/Time of Note DATE: 07/14/16 TIME: 06:53 Assessment/Plan VTE Prophylaxis VTE Prophylaxis Intervention: SCD's Lines/Catheters IV [facility] Type (from [facility]): Peripheral IV Urinary Cath still in place: Yes Reason Cath still needed: other (indicate) Assessment/Plan Chief Complaint/Hosp Course 1. 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 The patient is status post TPA. Continue neuro checks. Continue statins. Aspirin to be resumed. 2. Essential hypertension. Continue antihypertensives. 3. Dyslipidemia. Continue statins. 4. SIRS. Etiology unclear. Pancultures have been ordered. The patient has minimal leukocytosis. Await final cultures. Will start empiric antibiotics since the patient continues to have fevers. 5. Right carotid artery stenosis with 95% stenosis. The patient was evaluated by vascular surgery. As per vascular surgery, the patient needs a carotid endarterectomy. 6. History of drug abuse, with current positive amphetamines in the urine. Cessation will be advised. 7. Fluid, electrolytes and nutrition. Mechanical soft diet. Aspiration precautions. 8. DVT prophylaxis. Bilateral sequential compression devices. 9. Gastrointestinal prophylaxis. Proton pump inhibitors. PLAN: Continue frequent neuro checks. Continue physical therapy. Start aspirin. Start empiric antibiotics.The patient is stable to be transferred to [facility]. Case discussed with Dr. Raya. Critical care time: 35 minutes. Problems: Subjective 24 Hr Interval Summary Free Text/Dictation Continues to have febrile episodes. Exam/Review of Systems Vital Signs Vitals Vital Signs Date Time Temp Pulse Resp B/P Pulse Ox O2 Delivery O2 Flow Rate FiO2 07/14/16 06:00 63 17 117/73 98 07/14/16 05:00 Room Air 07/14/16 04:00 99.9 07/12/16 16:00 2.0 07/11/16 21:00 28 Intake and Output 07/13/16 07/13/16 07/14/16 15:00 23:00 07:00 Intake Total 520 ml 640 ml 530 ml Output Total 220 ml 190 ml 90 ml Balance 300 ml 450 ml 440 ml Exam GENERAL: This is an adequately built 60-year-old male patient lying in bed, in no apparent distress. HEENT: Head normocephalic and atraumatic. Eyes: Anicteric sclerae. Conjunctivae clear. ENT: Nasal septum is midline. Oral mucosa is dry. NECK: Supple. No JVD noticed. RESPIRATORY: Bilaterally clear to auscultation. No adventitious breath sounds. No use of accessory muscles of respiration. CARDIAC: Regular rate and rhythm. S1 and S2 heard. ABDOMEN: Soft, nontender, nondistended. Bowel sounds positive in all 4 quadrants. GENITOURINARY: Deferred. EXTREMITIES: No cyanosis, no clubbing, no edema. Peripheral pulses palpable. NEUROLOGIC: The patient is awake, alert, and orientedX4. LUE no movement against gravity. LLE No movement against gravity. Results Result Diagram: 07/14/16 04207/14/16 0420 Results 24 hrs Laboratory Tests Test 07/14/16 04:20 White Blood Count 9.5 # Red Blood Count 5.10 Hemoglobin 15.4 Hematocrit 45.4 Mean Corpuscular Volume 89.0 Mean Corpuscular Hemoglobin 30.2 Mean Corpuscular Hemoglobin Concent 33.9 Red Cell Distribution Width 12.0 Platelet Count 412 Mean Platelet Volume 8.4 Neutrophils % 63.8 Lymphocytes % 23.2 Monocytes % 11.8 H Eosinophils % 0.3 Basophils % 0.4 Nucleated Red Blood Cells % 0.0 Neutrophils # 6.0 Lymphocytes # 2.2 Monocytes # 1.1 H Eosinophils # 0.0 Basophils # 0.0 Nucleated Red Blood Cells # 0.0 Sodium Level 139 Potassium Level 3.8 Chloride Level 103 Carbon Dioxide Level 26 Anion Gap 14 Blood Urea Nitrogen 16 Creatinine 0.68 Glucose Level 101 Calcium Level 9.2 Phosphorus Level 3.4 Magnesium Level 2.3 Medications Medications Current Medications Sodium Chloride (NS) 1,000 ml @ 50 mls/hr Q20H IV Last administered on 06:08; Admin Dose 50 MLS/HR; Start 07/11/16 at 23:57 Acetaminophen (Tylenol Supp) 650 mg Q4H PRN MO PAIN LEVEL 1-3 OR FEVER Last administered on 07/13/16 20:16; Admin Dose 650 MG; Start 07/12/16 at 00:00 Pantoprazole (Protonix Iv) 40 mg DAILY@06 IV Last administered on 07/14/16 06: 08; Admin Dose 40 MG; Start 07/12/16 at 06:00 Labetalol HCl (Labetalol) 10 mg Q10M PRN IV ELEVATED BLOOD PRESSURE Last administered on 07/12/16 02:42; Admin Dose 10 MG; Start 07/12/16 at 00:00 Atorvastatin Calcium (Lipitor) 40 mg HS PO Last administered on 07/13/16 20:16 ; Admin Dose 40 MG; Start 07/12/16 at 21:00 Amlodipine Besylate (Norvasc) 5 mg BID PO Last administered on 07/13/16 20:16; Admin Dose 5 MG; Start 07/12/16 at 10:30 MARY FUENTES NP Jul 14, 2016 06:56
[2016-07-14] MEDS ORDERED: CEFTRIAXONE 1 GM/50 ML (PMX) 50 ML IVPB ONE (07:00)
[2016-07-14] MEDS: AMLODIPINE 5 MG TAB PO SCH ×2 (08:15→21:22)
[2016-07-14] MEDS ORDERED: ASPIRIN 300 MG SUPP PR SCH (09:00)
[2016-07-14] MEDS: ASPIRIN 325 MG TAB PO SCH (09:21)
--- NOTE | 2016-07-14 14:20 | CONS ---
Date/Time of Note Date/Time of Note DATE: 07/14/16 TIME: 14:18 Assessment/Plan Assessment/Plan Chief Complaint/Hosp Course Sudden onset of left-sided weakness and slurring of speech Problems: Additional Assessment/Plan Patient is a 60-year-old male admitted with sudden onset of of left-sided numbness and weakness. Patient was seen by telemetry neurology was consulted and CT of the head was performed. Patient was deemed a candidate to receive TPA.. He is currently in ICU. Initial CT scan of the brain did not show any acute stroke. Repeat CT scan of the brain showed evolution of right sub segmental non hemorrhagic middle cerebral artery infarct in the right insula and mild chronic microvascular ischemic disease. CT angiogram of the head and neck showed 75% narrowing of the right carotid bulb. Examination shows left hemiparesis. He apparently had right MCA ischemic stroke likely secondary to carotid artery stenosis. MRI of the brain showed acute/recent right MCA distribution infarct, with infarct involving the right posterior frontal / parietal lobe as well as the superior right temporal lobe, subtle areas of low signal on the GRE images, concerning for early hemorrhagic transformation. Plan: 1 continue aspirin but decrease the dose to 81 mg daily 2 follow echocardiogram 3 continue neuro check per ICU protocol 4 OT/PT/speech evaluation and treatment 5 discussed with patient and were present in the room 6 okay to transfer to [facility] when bed available Consultation Date/Type/Reason Admit Date/Time Jul 12, 2016 at 00:03 Initial Consult Date 07/12/16 Type of Consultation: Neurology Reason for Consultation Right hemiparesis Referring Provider: BALDO PATEL 24 HR Interval Summary Free Text/Dictation Mildly improving in his symptoms. More awake and alert still have right gaze preference. Exam/Review of Systems Vital Signs Vitals Vital Signs Date Time Temp Pulse Resp B/P Pulse Ox O2 Delivery O2 Flow Rate FiO2 07/14/16 14:00 74 19 114/88 96 Room Air 07/14/16 12:00 98.8 07/12/16 16:00 2.0 07/11/16 21:00 28 Intake and Output 07/13/16 07/13/16 07/14/16 15:00 23:00 07:00 Intake Total 520 ml 640 ml 580 ml Output Total 220 ml 190 ml 125 ml Balance 300 ml 450 ml 455 ml Exam Constitutional: alert Psych: no complaints Head: atraumatic, normocephalic Eyes: EOMI, nl conjunctiva, nl lids, nl sclera ENMT: mucosa pink and moist, nl external ears & nose, nl lips & teeth, nl nasal mucosa & septum Neck: non-tender, supple Respiratory: clear to auscultation, normal air movement Cardiovascular: nl pulses, regular rate and rhythm Gastrointestinal: nl liver, spleen, non-tender, soft Musculoskeletal: muscle weakness Extremities: normal pulses Neurological: other (Awake and alert, following simple commands, left hemiparesis, dysarthria) Skin: nl turgor, rash or lesions Results Result Diagram: 07/14/1641907/14/16419 Results 24 hrs Laboratory Tests Test 07/14/16 04:20 White Blood Count 9.5 # Red Blood Count 5.10 Hemoglobin 15.4 Hematocrit 45.4 Mean Corpuscular Volume 89.0 Mean Corpuscular Hemoglobin 30.2 Mean Corpuscular Hemoglobin Concent 33.9 Red Cell Distribution Width 12.0 Platelet Count 412 Mean Platelet Volume 8.4 Neutrophils % 63.8 Lymphocytes % 23.2 Monocytes % 11.8 H Eosinophils % 0.3 Basophils % 0.4 Nucleated Red Blood Cells % 0.0 Neutrophils # 6.0 Lymphocytes # 2.2 Monocytes # 1.1 H Eosinophils # 0.0 Basophils # 0.0 Nucleated Red Blood Cells # 0.0 Sodium Level 139 Potassium Level 3.8 Chloride Level 103 Carbon Dioxide Level 26 Anion Gap 14 Blood Urea Nitrogen 16 Creatinine 0.68 Glucose Level 101 Calcium Level 9.2 Phosphorus Level 3.4 Magnesium Level 2.3 Medications Medications Current Medications Sodium Chloride (NS) 1,000 ml @ 50 mls/hr Q20H IV Last administered on 06:08; Admin Dose 50 MLS/HR; Start 07/11/16 at 23:57 Acetaminophen (Tylenol Supp) 650 mg Q4H PRN [place] PAIN LEVEL 1-3 OR FEVER Last administered on 07/13/16 20:16; Admin Dose 650 MG; Start 07/12/16 at 00:00 Pantoprazole (Protonix Iv) 40 mg DAILY@06 IV Last administered on 07/14/16 06: 08; Admin Dose 40 MG; Start 07/12/16 at 06:00 Labetalol HCl (Labetalol) 10 mg Q10M PRN IV ELEVATED BLOOD PRESSURE Last administered on 07/12/16 02:42; Admin Dose 10 MG; Start 07/12/16 at 00:00 Atorvastatin Calcium (Lipitor) 40 mg HS PO Last administered on 07/13/16 20:16 ; Admin Dose 40 MG; Start 07/12/16 at 21:00 Amlodipine Besylate (Norvasc) 5 mg BID PO Last administered on 07/14/16 08:15; Admin Dose 5 MG; Start 07/12/16 at 10:30 Aspirin (Aspirin) 325 mg DAILY PO Last administered on 07/14/16 09:21; Admin Dose 325 MG; Start 07/14/16 at 09:30 ARASELI HERBERT MD Jul 14, 2016 14:20
--- NOTE | 2016-07-14 15:08 | PN ---
Date/Time of Note Date/Time of Note DATE: 07/14/16 TIME: 15:05 Assessment/Plan VTE Prophylaxis VTE Prophylaxis Intervention: contraindicated VTE Contraindication Reason: hemorrhagic cerebral infarction VTE Confirmed-Overlap Tx Rcvd Pt Rcvd Overlap Therapy: No Reason for no Overlap Therapy: Contraindicated Lines/Catheters IV Catheter Type (from Nrs): Central line still needed: No Urinary Cath still in place: No Reason Cath still needed: urinary retention, other (indicate) Assessment/Plan Chief Complaint/Hosp Course IMPRESSION: 1. Right carotid stenosis 75%. 2. Right middle cerebral artery stroke. RECOMMENDATIONS: This patient will need right carotid endarterectomy; however, he should recover from the stroke prior to undergoing surgery. He will also need cardiology clearance prior to surgery. Discussed with the family. We will discuss with the referring physicians. Problems: Subjective 24 Hr Interval Summary Cardiovascular: no complaints Gastrointestinal: no complaints Genitourinary: no complaints Musculoskeletal: no complaints Exam/Review of Systems Vital Signs Vitals Vital Signs Date Time Temp Pulse Resp B/P Pulse Ox O2 Delivery O2 Flow Rate FiO2 07/14/16 14:00 74 19 114/88 96 Room Air 07/14/16 12:00 98.8 07/12/16 16:00 2.0 07/11/16 21:00 28 Intake and Output 07/13/16 07/13/16 07/14/16 14:59 22:59 06:59 Intake Total 520 ml 640 ml 580 ml Output Total 210 ml 180 ml 130 ml Balance 310 ml 460 ml 450 ml Exam ENMT: nl external ears & nose, nl lips & teeth, nl nasal mucosa & septum Neck: non-tender, supple Respiratory: clear to auscultation, normal air movement Cardiovascular: nl pulses, regular rate and rhythm Results Result Diagram: 07/14/16 0420 07/14/16 0420 Results 24 hrs Laboratory Tests Test 07/14/16 04:20 White Blood Count 9.5 # Red Blood Count 5.10 Hemoglobin 15.4 Hematocrit 45.4 Mean Corpuscular Volume 89.0 Mean Corpuscular Hemoglobin 30.2 Mean Corpuscular Hemoglobin Concent 33.9 Red Cell Distribution Width 12.0 Platelet Count 412 Mean Platelet Volume 8.4 Neutrophils % 63.8 Lymphocytes % 23.2 Monocytes % 11.8 H Eosinophils % 0.3 Basophils % 0.4 Nucleated Red Blood Cells % 0.0 Neutrophils # 6.0 Lymphocytes # 2.2 Monocytes # 1.1 H Eosinophils # 0.0 Basophils # 0.0 Nucleated Red Blood Cells # 0.0 Sodium Level 139 Potassium Level 3.8 Chloride Level 103 Carbon Dioxide Level 26 Anion Gap 14 Blood Urea Nitrogen 16 Creatinine 0.68 Glucose Level 101 Calcium Level 9.2 Phosphorus Level 3.4 Magnesium Level 2.3 Medications Medications Current Medications Sodium Chloride (NS) 1,000 ml @ 50 mls/hr Q20H IV Last administered on 06:08; Admin Dose 50 MLS/HR; Start 07/11/16 at 23:57 Acetaminophen (Tylenol Supp) 650 mg Q4H PRN [place] PAIN LEVEL 1-3 OR FEVER Last administered on 07/13/16 20:16; Admin Dose 650 MG; Start 07/12/16 at 00:00 Pantoprazole (Protonix Iv) 40 mg DAILY@06 IV Last administered on 07/14/16 06: 08; Admin Dose 40 MG; Start 07/12/16 at 06:00 Labetalol HCl (Labetalol) 10 mg Q10M PRN IV ELEVATED BLOOD PRESSURE Last administered on 07/12/16 02:42; Admin Dose 10 MG; Start 07/12/16 at 00:00 Atorvastatin Calcium (Lipitor) 40 mg HS PO Last administered on 07/13/16 20:16 ; Admin Dose 40 MG; Start 07/12/16 at 21:00 Amlodipine Besylate (Norvasc) 5 mg BID PO Last administered on 07/14/16 08:15; Admin Dose 5 MG; Start 07/12/16 at 10:30 Aspirin (Aspirin) 325 mg DAILY PO Last administered on 07/14/16 09:21; Admin Dose 325 MG; Start 07/14/16 at 09:30 STEFANIA LORD MD Jul 14, 2016 15:08
--- NOTE | 2016-07-14 15:12 | PN ---
Date/Time of Note Date/Time of Note DATE: 07/14/16 TIME: 15:12 Assessment/Plan Lines/Catheters IV Catheter Type (from [facility]): Madrigal in Place (from [facility]): No Assessment/Plan Chief Complaint/Hosp Course IMPRESSION: 1. Right carotid stenosis 75%. 2. Right middle cerebral artery stroke. RECOMMENDATIONS: This patient will need right carotid endarterectomy; however, he should recover from the stroke prior to undergoing surgery. He will also need cardiology clearance prior to surgery. Discussed with the family. We will discuss with the referring physicians. Problems: Subjective 24 Hr Interval Summary Constitutional: improved Pain Control: mild Exam/Review of Systems Vital Signs Vitals Vital Signs Date Time Temp Pulse Resp B/P Pulse Ox O2 Delivery O2 Flow Rate FiO2 07/14/16 14:00 74 19 114/88 96 Room Air 07/14/16 12:00 98.8 07/12/16 16:00 2.0 07/11/16 21:00 28 Intake and Output 07/13/16 07/13/16 07/14/16 15:00 23:00 07:00 Intake Total 520 ml 640 ml 580 ml Output Total 220 ml 190 ml 125 ml Balance 300 ml 450 ml 455 ml Exam ENMT: mucosa pink and moist, nl external ears & nose, nl lips & teeth, nl nasal mucosa & septum Neck: non-tender, supple Respiratory: clear to auscultation, normal air movement Cardiovascular: nl pulses, regular rate and rhythm Gastrointestinal: nl liver, spleen, non-tender, soft Results Result Diagram: 07/14/16 0420 07/14/16 0420 STEFANIA LORD MD Jul 14, 2016 15:12
[2016-07-14] MEDS: ATORVASTATIN 40 MG TAB PO SCH (21:22)
[2016-07-15] VITALS (22 sets, daily range): BP systolic 103–147; BP diastolic 53–107; PULSE 66–97; RESP 12–25
[2016-07-15] MEDS: PANTOPRAZOLE 40 MG INJ IV SCH (05:57)
[2016-07-15 06:12] LABS: ADD SCAN DIFF NO
[2016-07-15 06:14] LABS: BASOPHIL # 0.1 10^3/ul (0.0-0.1); BASOPHILS % 0.5 % (0.0-2.0); EOSINOPHILS # 0.1 10^3/ul (0.0-0.5); EOSINOPHILS % 0.7 % (0.0-7.0); HEMATOCRIT 46.2 % (42.0-52.0); HEMOGLOBIN 15.6 g/dl (14.0-18.0); MEAN CORPUSCULAR HEMOGLOBIN 29.9 pg (29.0-33.0); MEAN CORPUSCULAR HGB CONC 33.8 g/dl (32.0-37.0); MEAN CORPUSCULAR VOLUME 88.7 fl (82.0-101.0); MEAN PLATELET VOLUME 8.6 fl (7.4-10.4); MONOCYTES % 9.9 % (0.0-11.0); NEUTROPHIL # 6.8 10^3/ul (1.6-7.5); NEUTROPHILS % 68.3 % (39.0-77.0); PLATELET COUNT 410 10^3/UL (140-415); RED BLOOD COUNT 5.21 10^6/ul (4.70-6.10); RED CELL DISTRIBUTION WIDTH 12.1 % (11.5-14.5)
[2016-07-15 06:44] LABS: MAGNESIUM 2.1 mg/dl (1.7-2.5); PHOSPHORUS 4.4 mg/dl (2.5-4.9)
[2016-07-15 06:52] LABS: CALCIUM 9.1 mg/dl (8.4-10.2); CREATININE 0.69 mg/dl (0.61-1.24); POTASSIUM 3.4 mmol/L (3.5-5.1)
[2016-07-15] MEDS: AMLODIPINE 5 MG TAB PO SCH ×2 (09:37→21:01)
[2016-07-15] MEDS: ASPIRIN 325 MG TAB PO SCH (09:37)
--- NOTE | 2016-07-15 10:36 | CONS ---
Date/Time of Note Date/Time of Note DATE: 07/15/16 TIME: 10:28 Assessment/Plan Assessment/Plan Chief Complaint/Hosp Course Pre-operative evaluation: The pt is to undergo a moderate risk surgery with CEA. Prior to this event he was very active and asymptomatic. He is currently also asymptomatic. EF is normal by echo. No CHF. Pt would be low-intermediate risk for surgery. Acute right MCA stroke: s/p TPA, improvement in leg strength Right carotid artery stenosis: 75%. Plan for CEA HTN -can proceed with surgery without further testing, timing to be determined -ASA, lipitor -amlodipine Problems: Consultation Date/Type/Reason Admit Date/Time Jul 12, 2016 at 00:03 Date of Consultation: Jul 15, 2016 Type of Consultation: Cardiology Reason for Consultation Pre-op evaluation Referring Provider: MARY FUENTES NP Hx of Present Illness 60 yo M with no previous history who presented with left sided weakness and was found to have an acute MCA stroke s/p TPA. He was also discovered to have a right carotid stenosis of 75% for which CEA is planned. Cardiology is consulted for pre-op evaluation. The pt has regained strength in his left leg and is able to raise it off the bed but his left arm is still flaccid. He notes that prior to this event he was very active and was able to walk multiple blocks and up multiple flights of stairs without any chest pain or dyspnea. No current symptoms. No SOB, CP, orthopnea, edema. per HPI Eyes: no complaints ENT: no complaints Respiratory: no complaints Cardiovascular: no complaints Gastrointestinal: no complaints Genitourinary: no complaints Musculoskeletal: no complaints Skin: no complaints Neurologic: focal-weakness Endocrine: no complaints Lymphatic: no complaints Psychological: no complaints Immunologic: no complaints Past Medical History Medical History: no pertinent history Past Surgical History Past Surgical Hx: no surgical history Social History Alcohol Use: occasionally Smoking Status: Never smoker Drug Use: other (Possible cocaine use according to in the past) Exam/Review of Systems Vital Signs Vitals Vital Signs Date Time Temp Pulse Resp B/P Pulse Ox O2 Delivery O2 Flow Rate FiO2 07/15/16 08:00 97 07/15/16 08:00 98.4 13 110/75 97 Room Air 07/12/16 16:00 2.0 07/11/16 21:00 28 Intake and Output 607/14/16 07/15/16 15:00 23:00 07:00 Intake Total 700 ml 400 ml 750 ml Output Total 230 ml 225 ml 381 ml Balance 470 ml 175 ml 369 ml Exam Constitutional: alert, oriented Psych: no complaints Head: atraumatic, normocephalic Neck: No jvd Respiratory: clear to auscultation, No crackles/rales Cardiovascular: regular rate and rhythm, No edema, No systolic murmur Gastrointestinal: non-tender, soft Extremities: normal pulses Neurological: nl mental status, nl speech, No nl strength (left leg 3/5, left arm 0/5) Results Result Diagram: 07/15/16 0530 07/15/16 0530 Results 24 hrs Laboratory Tests Test 07/15/16 05:30 White Blood Count 10.0 Red Blood Count 5.21 Hemoglobin 15.6 Hematocrit 46.2 Mean Corpuscular Volume 88.7 Mean Corpuscular Hemoglobin 29.9 Mean Corpuscular Hemoglobin Concent 33.8 Red Cell Distribution Width 12.1 Platelet Count 410 Mean Platelet Volume 8.6 Neutrophils % 68.3 Lymphocytes % 20.0 Monocytes % 9.9 Eosinophils % 0.7 Basophils % 0.5 Nucleated Red Blood Cells % 0.0 Neutrophils # 6.8 Lymphocytes # 2.0 Monocytes # 1.0 H Eosinophils # 0.1 Basophils # 0.1 Nucleated Red Blood Cells # 0.0 Sodium Level 138 Potassium Level 3.4 L Chloride Level 103 Carbon Dioxide Level 25 Anion Gap 13 Blood Urea Nitrogen 17 Creatinine 0.69 Glucose Level 108 Calcium Level 9.1 Phosphorus Level 4.4 Magnesium Level 2.1 Medications Medications Current Medications Sodium Chloride (NS) 1,000 ml @ 50 mls/hr Q20H IV Last administered on 06:08; Admin Dose 50 MLS/HR; Start 07/11/16 at 23:57 Acetaminophen (Tylenol Supp) 650 mg Q4H PRN [place] PAIN LEVEL 1-3 OR FEVER Last administered on 07/13/16 20:16; Admin Dose 650 MG; Start 07/12/16 at 00:00 Pantoprazole (Protonix Iv) 40 mg DAILY@06 IV Last administered on 07/15/16 05: 57; Admin Dose 40 MG; Start 07/12/16 at 06:00 Labetalol HCl (Labetalol) 10 mg Q10M PRN IV ELEVATED BLOOD PRESSURE Last administered on 07/12/16 02:42; Admin Dose 10 MG; Start 07/12/16 at 00:00 Atorvastatin Calcium (Lipitor) 40 mg HS PO Last administered on 07/14/16 21:22 ; Admin Dose 40 MG; Start 07/12/16 at 21:00 Amlodipine Besylate (Norvasc) 5 mg BID PO Last administered on 07/15/16 09:37; Admin Dose 5 MG; Start 07/12/16 at 10:30 Aspirin (Aspirin) 325 mg DAILY PO Last administered on 07/15/16 09:37; Admin Dose 325 MG; Start 07/14/16 at 09:30 YOLY ANN Jul 15, 2016 10:36
--- NOTE | 2016-07-15 10:58 | RADRPT ---
PROCEDURE: CT Brain without contrast. CLINICAL INDICATION: Neurologic deficit TECHNIQUE: A CT of the brain was performed on multidetector high-resolution CT scanner utilizing a xial sections from the skull base through the vertex without contrast. One or more of the following dose reduction techniques were used: Automated exposure control, Adjustment of the mA and/or kV acc ording to patient size, and/or use of iterative reconstruction technique. DOSE: CTDI = 43 mGy and the DLP = 720 mGy-cm. COMPARISON: Head CT 07/13/2016 FINDINGS: Continue evolution of the right MCA territory infarct including involvement of the right precentral gyrus without hemorrhagic conversion. No midline shift. Patchy hypoattenuation of the cerebral whit e matter is compatible with chronic microvascular ischemic changes. Vascular calcifications. Promine nce of the cortical sulci and ventricles are related to mild cerebral volume loss. No significant opacification of the visualized paranasal sinuses or mastoids. IMPRESSION: No significant change. Continue evolution of the right MCA territory infarct without hemorrhagic conversion or midline shif t. Mild chronic microvascular disease and intracranial atherosclerosis. RPTAT: AA .Dennis Pierre MD, MD Date Time Electronically viewed and signed by .Dennis Pierre MD, on 07/15/2016 10:58 .T/
[2016-07-15] MEDS: SOD CHLORIDE 0.9% 1,000 ML IV SCH (11:48)
--- NOTE | 2016-07-15 12:56 | CONS ---
Date/Time of Note Date/Time of Note DATE: 07/15/16 TIME: 12:53 Consult Date/Type/Reason Admit Date/Time Jul 12, 2016 at 00:03 Initial Consult Date 07/15/16 Type of Consultation: Neurology Reason for Consultation Right MCA CVA, Right carotid stenosis Ordering Provider: MARY FUENTES NP Subjective improving strength in LLE NISHA remains plegic awaiting tx to [place] Objective Vital Signs Date Time Temp Pulse Resp B/P Pulse Ox O2 Delivery O2 Flow Rate FiO2 07/15/16 12:00 75 07/15/16 08:00 98.4 13 110/75 97 Room Air 07/12/16 16:00 2.0 07/11/16 21:00 28 Intake and Output 07/14/16 07/14/16 07/15/16 14:59 22:59 06:59 Intake Total 700 ml 400 ml 750 ml Output Total 235 ml 225 ml 361 ml Balance 465 ml 175 ml 389 ml Exam Constitutional: alert Psych: no complaints Head: atraumatic, normocephalic Eyes: EOMI, nl conjunctiva, nl lids, nl sclera ENMT: mucosa pink and moist, nl external ears & nose, nl lips & teeth, nl nasal mucosa & septum Neck: non-tender, supple Respiratory: clear to auscultation, normal air movement Cardiovascular: nl pulses, regular rate and rhythm Gastrointestinal: nl liver, spleen, non-tender, soft Musculoskeletal: muscle weakness Extremities: normal pulses Neurological: other (Awake and alert, following simple commands, left hemiparesis, dysarthria) left arm is 0/5, LLE can lift anti-gravity atleast 10 seconds and maintain with mild drift Skin: nl turgor, rash or lesions Results/Medications Result Diagram: 07/15/1630 07/15/16 0530 Results 24 hrs Laboratory Tests Test 07/15/16 05:30 White Blood Count 10.0 Red Blood Count 5.21 Hemoglobin 15.6 Hematocrit 46.2 Mean Corpuscular Volume 88.7 Mean Corpuscular Hemoglobin 29.9 Mean Corpuscular Hemoglobin Concent 33.8 Red Cell Distribution Width 12.1 Platelet Count 410 Mean Platelet Volume 8.6 Neutrophils % 68.3 Lymphocytes % 20.0 Monocytes % 9.9 Eosinophils % 0.7 Basophils % 0.5 Nucleated Red Blood Cells % 0.0 Neutrophils # 6.8 Lymphocytes # 2.0 Monocytes # 1.0 H Eosinophils # 0.1 Basophils # 0.1 Nucleated Red Blood Cells # 0.0 Sodium Level 138 Potassium Level 3.4 L Chloride Level 103 Carbon Dioxide Level 25 Anion Gap 13 Blood Urea Nitrogen 17 Creatinine 0.69 Glucose Level 108 Calcium Level 9.1 Phosphorus Level 4.4 Magnesium Level 2.1 Medications Current Medications Sodium Chloride (NS) 1,000 ml @ 50 mls/hr Q20H IV Last administered on 11:48; Admin Dose 50 MLS/HR; Start 07/11/16 at 23:57 Acetaminophen (Tylenol Supp) 650 mg Q4H PRN [place] PAIN LEVEL 1-3 OR FEVER Last administered on 07/13/16 20:16; Admin Dose 650 MG; Start 07/12/16 at 00:00 Pantoprazole (Protonix Iv) 40 mg DAILY@06 IV Last administered on 07/15/16 05: 57; Admin Dose 40 MG; Start 07/12/16 at 06:00 Labetalol HCl (Labetalol) 10 mg Q10M PRN IV ELEVATED BLOOD PRESSURE Last administered on 07/12/16 02:42; Admin Dose 10 MG; Start 07/12/16 at 00:00 Atorvastatin Calcium (Lipitor) 40 mg HS PO Last administered on 07/14/16 21:22 ; Admin Dose 40 MG; Start 07/12/16 at 21:00 Amlodipine Besylate (Norvasc) 5 mg BID PO Last administered on 07/15/16 09:37; Admin Dose 5 MG; Start 07/12/16 at 10:30 Aspirin (Aspirin) 325 mg DAILY PO Last administered on 07/15/16 09:37; Admin Dose 325 MG; Start 07/14/16 at 09:30 Assessment/Plan Chief Complaint/Hosp Course 60-year-old male admitted with sudden onset of of left-sided numbness and weakness. Patient was seen by telemetry neurology was consulted and CT of the head was performed. Patient was deemed a candidate to receive TPA.. He is currently in ICU. Initial CT scan of the brain did not show any acute stroke. Repeat CT scan of the brain showed evolution of right sub segmental non hemorrhagic middle cerebral artery infarct in the right insula and mild chronic microvascular ischemic disease. CT angiogram of the head and neck showed 75% narrowing of the right carotid bulb. Examination shows left hemiparesis. He apparently had right MCA ischemic stroke likely secondary to carotid artery stenosis. MRI of the brain showed acute/recent right MCA distribution infarct, with infarct involving the right posterior frontal / parietal lobe as well as the superior right temporal lobe, subtle areas of low signal on the GRE images, concerning for early hemorrhagic transformation. Repeat Head CT this am shows stability. Plan: -c/w ASA 81 mg daily -continue neuro checks per ICU protocol -PT/OT Problems: LEANNA ORLANDO MD Jul 15, 2016 12:56
--- NOTE | 2016-07-15 13:28 | PDOCDIS ---
Discharge Instructions DIAGNOSIS Discharge Diagnosis: 1. Acute right MCA infarct 2. Hypertension 3. Right carotid artery steno CONDITION Patient Condition: Stable OTHER ORDERS: Other Orders: Further care and management per [facility] ZEINA JEFFREY Jul 15, 2016 13:28
--- NOTE | 2016-07-15 14:23 | PN ---
Date/Time of Note Date/Time of Note DATE: 07/15/16 TIME: 14:21 Assessment/Plan VTE Prophylaxis VTE Prophylaxis Intervention: SCD's Lines/Catheters IV Catheter Type (from [facility] Peripheral IV Urinary Cath still in place: Yes Assessment/Plan Chief Complaint/Hosp Course Assessment and plan 1. Acute right MCA distribution infarct with infarct involving the right posterior frontal/parietal lobe and superior right temporal lobe. Patient is status post TPA. Neurology is following. Continue on statin and aspirin 2. Essential hypertension. Continue on antihypertensives and adjust as needed 3. Dyspnea. Continue statin medication 4. Right carotid artery stenosis with 90% stenosis. Patient followed by vascular surgeon. Vascular surgeon recommendation for endarterectomy. Patient was transferred to be transferred to [facility] for further management of this 5. History of drug abuse with current ketamine positive on urine tox. Cessation advised. DVT prophylaxis: SCD For prophylaxis: PPI Disposition plan: Still awaiting placement at [facility]. Will follow up with case management Discussed plan of care with Dr. Pandya Critical CARE time: 30 minutes Problems: Subjective 24 Hr Interval Summary Free Text/Dictation Resting at this time. No apparent distress. Still seen with left upper and lower extremity weakness. Family at bedside Exam/Review of Systems Vital Signs Vitals Vital Signs Date Time Temp Pulse Resp B/P Pulse Ox O2 Delivery O2 Flow Rate FiO2 07/15/16 12:00 75 07/15/16 08:00 98.4 13 110/75 97 Room Air 07/12/16 16:00 2.0 07/11/16 21:00 28 Intake and Output 07/14/16 07/14/16 07/15/16 15:00 23:00 07:00 Intake Total 700 ml 400 ml 750 ml Output Total 230 ml 225 ml 381 ml Balance 470 ml 175 ml 369 ml Exam Constitutional: alert, oriented Psych: nl mood/affect Head: normocephalic Respiratory: clear to auscultation, normal air movement Cardiovascular: regular rate and rhythm Gastrointestinal: non-tender, soft Musculoskeletal: other (Left upper extremity paralysis left lower extremity weakness) Neurological: nl mental status, nl speech Skin: nl turgor Results Result Diagram: 07/15/16 0530 07/15/16 0530 Results 24 hrs Laboratory Tests Test 07/15/16 05:30 White Blood Count 10.0 Red Blood Count 5.21 Hemoglobin 15.6 Hematocrit 46.2 Mean Corpuscular Volume 88.7 Mean Corpuscular Hemoglobin 29.9 Mean Corpuscular Hemoglobin Concent 33.8 Red Cell Distribution Width 12.1 Platelet Count 410 Mean Platelet Volume 8.6 Neutrophils % 68.3 Lymphocytes % 20.0 Monocytes % 9.9 Eosinophils % 0.7 Basophils % 0.5 Nucleated Red Blood Cells % 0.0 Neutrophils # 6.8 Lymphocytes # 2.0 Monocytes # 1.0 H Eosinophils # 0.1 Basophils # 0.1 Nucleated Red Blood Cells # 0.0 Sodium Level 138 Potassium Level 3.4 L Chloride Level 103 Carbon Dioxide Level 25 Anion Gap 13 Blood Urea Nitrogen 17 Creatinine 0.69 Glucose Level 108 Calcium Level 9.1 Phosphorus Level 4.4 Magnesium Level 2.1 Medications Medications Current Medications Sodium Chloride (NS) 1,000 ml @ 50 mls/hr Q20H IV Last administered on 11:48; Admin Dose 50 MLS/HR; Start 07/11/16 at 23:57 Acetaminophen (Tylenol Supp) [address] PAIN LEVEL 1-3 OR FEVER Last administered on 07/13/16 20:16; Admin Dose 650 MG; Start 07/12/16 at 00:00 Pantoprazole (Protonix Iv) 40 mg DAILY@06 IV Last administered on 07/15/16 05: 57; Admin Dose 40 MG; Start 07/12/16 at 06:00 Labetalol HCl (Labetalol) 10 mg Q10M PRN IV ELEVATED BLOOD PRESSURE Last administered on 07/12/16 02:42; Admin Dose 10 MG; Start 07/12/16 at 00:00 Atorvastatin Calcium (Lipitor) 40 mg HS PO Last administered on 07/14/16 21:22 ; Admin Dose 40 MG; Start 07/12/16 at 21:00 Amlodipine Besylate (Norvasc) 5 mg BID PO Last administered on 07/15/16 09:37; Admin Dose 5 MG; Start 07/12/16 at 10:30 Aspirin (Aspirin) 325 mg DAILY PO Last administered on 07/15/16 09:37; Admin Dose 325 MG; Start 07/14/16 at 09:30 ZEINA JEFFREY Jul 15, 2016 14:23
--- NOTE | 2016-07-15 14:39 | PN ---
Date/Time of Note Date/Time of Note DATE: 07/15/16 TIME: 14:37 Assessment/Plan Lines/Catheters IV Catheter Type (from Nrsg): Peripheral IV Madrigal in Place (from Nrsg): Yes Assessment/Plan Chief Complaint/Hosp Course IMPRESSION: 1. Right carotid stenosis 75%. 2. Right middle cerebral artery stroke. RECOMMENDATIONS: This patient will need right carotid endarterectomy; however, he should recover from the stroke prior to undergoing surgery. He will also need cardiology clearance prior to surgery . Discussed with the family. Pt to go to [facility] for further care Problems: Subjective 24 Hr Interval Summary Constitutional: improved Pain Control: mild Exam/Review of Systems Vital Signs Vitals Vital Signs Date Time Temp Pulse Resp B/P Pulse Ox O2 Delivery O2 Flow Rate FiO2 07/15/16 12:00 75 07/15/16 08:00 98.4 13 110/75 97 Room Air 07/12/16 16:00 2.0 07/11/16 21:00 28 Intake and Output 07/14/16 07/14/16 07/15/16 15:00 23:00 07:00 Intake Total 700 ml 400 ml 750 ml Output Total 230 ml 225 ml 381 ml Balance 470 ml 175 ml 369 ml Exam Neck: non-tender, supple Respiratory: clear to auscultation, normal air movement Cardiovascular: nl pulses, regular rate and rhythm Gastrointestinal: nl liver, spleen, non-tender, soft Results Result Diagram: 07/15/1630 07/15/16 0530 STEFANIA LORD MD Jul 15, 2016 14:39
--- NOTE | 2016-07-15 20:07 | DS ---
DATE OF ADMISSION: 07/12/2016 DATE OF DISCHARGE: 07/15/2016 CONSULTANTS: 1. Dr. Wallace Braun 2. Dr. Lorrie Rudolph 3. Dr. Brayden Peterson DISCHARGE DIAGNOSES: 1. Acute right middle cerebral artery distribution infarct involving the right posterior, frontal/p arietal as well as superior right temporal lobe, status post TPA. 2. Essential hypertension. 3. Dyslipidemia. 4. Right carotid artery stenosis with 75% stenosis. 5. Substance abuse. 6. Systemic inflammatory response syndrome. 7. Prediabetes. HOSPITAL COURSE: This is a 60-year-old male with history of hypertension and dyslipidemia who did c ome to [facility] due to reports of left-sided numbness and weakness on 07/11/2016 that occurred around 6:30 p.m. at night. He did verbalize that [place] was trying to open his gate and his house, but noticed his left arm felt numb and as he went insid e his garage, his symptoms worsened. He was also complaining of left facial and left arm, leg numbn ess and weakness but there was no reported slurred speech or headache. The patient was found by his lying in the garage and immediately EMS was called. It was noted he does not take any medicat ions at home. Also the patient reports he has not been seen by doctor for his entire life. He did have consultation by neurology and had a CT scan of his head done. After it was done, it was deemed that he was a candidate to receive TPA for which he did receive. Of note, the patient does have a history of drug abuse in the past and did test positive for amphetamines on arrival. Of note, the p atient was also not started on any anticoagulation due to his being given TPA. The patient was prov ided with neuro checks and he also had a CTA of the neck that showed a significant 75% diameter sten osis with right carotid bulb irregular, noncalcified plaque. Also, CT showed mildly diffuse narrowi ng of the right middle cerebral artery, greatest in the distal M1 segment and proximal trifurcation vessels, suggestive of possible vasculitis. The patient was seen by vascular surgery and was recomm ended for endarterectomy. Due to the patient's insurance, he was to be transferred to [facility] for fu rther management and care. We did start the patient on statin as well as aspirin and we did have go od control of his blood pressure status post TPA. Of note, his echocardiogram did show him to have a preserved ejection fraction. He was also seen by finish remover. The patient persisted with left-s ided hemiparesis and he was seen by physical therapy as well as by speech therapist. The patient al so underwent MRI that showed and acute right MCA distribution infarct with an infarct involving the right posterior frontoparietal lobe as well as superior bitemporal lobe. During his course of stay, the patient did remain stable. He was optimized medically with physical therapy and statin as well as ASA. He was noted to be a prior prediabetic and A1c did show him to have an A1c of 6.0. The markie vega also had an episode of leukocytosis and fever. For this, we did do pancultures although they were negative. This did resolve and he was initially started empirically on antibiotics. He was re sumed on antihypertensives for his hypertension and statin for dyslipidemia. He was advised for ill icit drug use cessation. During his course of stay, the patient was, as previously mentioned, stabl e. We did await for bed placement at [facility] prior to discharge. The plan of care was disc ussed with patient and patient did verbalize his understanding. On the day of discharge, the sarina morse was in stable condition. Discharge physical exam and vital signs are stable. CONDITION: Stable. DISCHARGE PLAN: Further management and care per [facility]. DISCHARGE MEDICATIONS: 1. Atorvastatin 40 mg p.o. at bedtime. 2. Amlodipine 5 mg p.o. b.i.d. 3. Protonix as needed. 4. Aspirin 325 mg p.o. daily. DISCHARGE PROCESS TIME: 40 minutes. Discussed plan of care with Dr. Pandya. Dictated By: ZEINA JEFFREY OUTDOOR EMERGENCY CARE TECHNICIAN for NURIA PANDYA MD RR/NTS Conf#: [id number] DID#: [id number] CC: BALDO PATEL MD;*End*
[2016-07-15] MEDS: ATORVASTATIN 40 MG TAB PO SCH (21:01)
== END 2016-07-15 22:10 | disposition short-term general hospital (02) | DRG 62 ==
LOC: E/R 19:19 → ICU 07-12 00:03
PROVIDERS: ADMIT Family Medicine; ATTEND Family Medicine
DX: I63.231 Cerebral infarction due to unspecified occlusion or stenosis of right carotid arteries (principal); R65.10 Systemic inflammatory response syndrome (SIRS) of non-infectious origin without acute organ dysfunction; G81.94 Hemiplegia, unspecified affecting left nondominant side; I10 Essential (primary) hypertension; E78.5 Hyperlipidemia, unspecified; R73.03 Prediabetes; R40.2432 Glasgow coma scale score 3-8, at arrival to emergency department; F15.10 Other stimulant abuse, uncomplicated
CPT/HCPCS: 70450; 70496; 70498; 70551; 71010; 80048; 80053; 80061; 80307; 81001; 82962; 83036; 83735; 84100; 84484; 85025; 85610; 85651; 85730; 86021; 86038; 86140; 87040; 87081; 92610; 93005; 93306; 93880; 96374; 96375; 96376; 97162; C9113; J0696; J2060; J2997; J7030; Q9967